=== PATIENT | female | born 1975 | race Caucasian/White ===

== ENCOUNTER 2020-07-26 10:55 | Observation (INO) ==
[2020-07-26] MEDS ORDERED: ONDANSETRON INJ 2 MG/ML 2 ML VIAL IV STA (11:43)
[2020-07-26] MEDS ORDERED: MoRPHine SULFATE 4 MG/ML 1 ML CARP\\VIAL IV STA (11:43)
[2020-07-26 11:57] LABS: Basophils # (auto) 0.05 K/uL (0-0.2); Basophils % (auto) 0.3 %; Eosinophils # (auto) 0.36 K/uL (0-0.5); Eosinophils % (auto) 2.3 %; Hematocrit (blood only) 37.5 % (37-47); Hemoglobin 11.7 g/dL (12.0-16.0); Immature Granulocytes # (auto) 0.21 K/uL (0.00-0.02); Immature Granulocytes % (auto) 1.3 %; Lymphocytes # (auto) 3.56 K/uL (1.2-3.4); Lymphocytes % (auto) 22.8 %; Mean Corpuscular Hemoglobin 24.8 pg (25-34); Mean Corpuscular Hgb Conc 31.2 g/dL (32-36); Mean Corpuscular Volume 79.4 fL (80-100); Mean Platelet Volume 11.7 fL (7.4-10.4); Monocytes # (auto) 1.74 K/uL (0.11-0.59); Monocytes % (auto) 11.1 %; Neutrophils # (auto) 9.72 K/uL (1.4-6.5); Neutrophils % (auto) 62.2 %; Platelet Count 289 K/uL (130-400); RDW Coefficient of Variation 17.7 % (11.5-14.5); RDW Standard Deviation 51.8 fL (36.4-46.3); Red Blood Count 4.72 M/uL (4.2-5.4); White Blood Count 15.64 K/uL (4.8-10.8)
[2020-07-26 12:04] LABS: INR 1.1 (0.9-1.1); Prothrombin Time 11.6 Seconds (9.0-12.0)
[2020-07-26 12:06] LABS: Alanine Aminotransferase 11 U/L (12-78); Albumin Level 2.7 gm/dl (3.4-5.0); Aspartate Aminotransferase 6 U/L (15-37); BUN Creatinine Ratio 20.8 (10-20); Blood Urea Nitrogen 13 mg/dl (7-18); Calcium 8.7 mg/dl (8.5-10.1); Carbon Dioxide 27 mmol/L (21-32); Chloride 102 mmol/L (98-107); Glucose 106 mg/dl (70-99); Lipase 39 U/L (73-393); Potassium 3.4 mmol/L (3.5-5.1); Sodium 138 mmol/L (136-145)
[2020-07-26 12:11] LABS: Albumin Globulin Ratio 0.6 (0.9-2); Alkaline Phosphatase 71 U/L (45-117); Bilirubin,Total 0.4 mg/dl (0.2-1); Creatine Kinase 17 U/L (26-192); Globulin 4.7 gm/dl (2.5-4.0); Total Protein 7.4 gm/dl (6.4-8.2); Troponin I < 0.015 ng/ml (0-0.045)
--- NOTE | 2020-07-26 12:15 | Emergency Department Note ---
History of Present Illness General Chief complaint: Chest Pain Time Seen by Provider: 07/26/20 11:23 History of Present Illness Maximum Pain Intensity: 6 44-year-old female who presents to the emergency department via [facility] ambulance for evaluation of right central chest discomfort since 9:50 AM this morning. The patient reports that she had just taken some ibuprofen for right abdominal pain that has been ongoing for the past month. The patient reports a prior history of kidney stones, and has had blood in her urine with ongoing intermittent discomfort of the abdomen and back. The patient has not been evaluated for her possible kidney stone. The patient admits that she was taking large amounts of aspirin for her pain, and thinks that she overdid it. Patient has not had any coffee-ground emesis or melena. The patient reports that her current chest pain does not radiate into the left chest, neck or shoulder. The patient has had some nausea. She denies diaphoresis. Patient does report significant history of caffeine/coffee use in the past, but has not been drinking coffee over the past several days. She denies alcohol use. Patient denies history of reflux or peptic ulcers. She also denies history of hepatitis, pancreatitis or cholecystitis. Patient denies any abdominal surgical history. Patient also denies any cardiopulmonary history or strong family history of the same. Patient denies any current alleviating or aggravating factors for her chest or abdominal pain. The patient was administered aspirin 324 mg chew and sublingual nitroglycerin x3 without any relief en route. The patient currently rates her discomfort an 8 out of 10. Home Medications Medication Instructions Recorded Confirmed Type ibuprofen 0 mg PO UD PRN 07/26/20 07/26/20 History Allergies Allergy/AdvReac Type Severity Reaction Status Date / Time No Known Allergies Allergy Unverified 07/26/20 13:22 Past Med/Surg History Medical History Acute cholecystitis Kidney stones Morbid obesity Surgical History No significant past surgical history Social History Smoking Status: Never smoker Second Hand Exposure: No; Do You Dip or Chew Tobacco: No; Tobacco Cessation Education Requested by Patient: No Hx Alcohol Use: No Hx Substance Use: No Preferred Language: Pashto 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: No Beliefs That Will Affect Care: None marital status: Single Current Living Situation: Family current occupational status: unemployed Other Information That Helps Us Care for You: No Feels Safe at Home: Yes Safety Concerns: Feels Safe At This Time Assistive Devices: None Review of Systems 10 system review was performed and was negative except for pertinent positives and negatives as indicated in history of present illness Physical Exam Vital Signs Vital Signs - 24 hr 07/26/20 10:55 07/26/20 11:01 07/26/20 11:43 Temperature 36.7 C Temperature Source Oral Pulse Rate 99 H 100 H 99 H Pulse Rate from SpO2 Sensor Pulse Rhythm Regular Regular Respiratory Rate Respiratory Effort / Characteristics Non-Labored Spontaneous Respiratory Depth Normal Respiratory Pattern Regular Blood Pressure 166/94 H 166/94 H Blood Pressure Mean 118 118 Pulse Oximetry 96 96 Oxygen Delivery Method Room Air Room Air Sepsis Recent Fever Within 48 Hours No Sepsis New/Unexplained Change in Mental Status No Sepsis Action Taken by Nursing No Action Required 07/26/20 12:12 07/26/20 13:10 07/26/20 13:30 Temperature Temperature Source Pulse Rate 110 H 104 H 101 H Pulse Rate from SpO2 Sensor 107 H 106 H 100 H Pulse Rhythm Respiratory Rate 17 20 16 Respiratory Effort / Characteristics Respiratory Depth Respiratory Pattern Blood Pressure 121/89 184/103 H 171/103 H Blood Pressure Mean 99 130 125 Pulse Oximetry 95 93 92 Oxygen Delivery Method Sepsis Recent Fever Within 48 Hours Sepsis New/Unexplained Change in Mental Status Sepsis Action Taken by Nursing 07/26/20 14:00 07/26/20 14:30 07/26/20 15:18 Temperature Temperature Source Pulse Rate 100 H 105 H 105 H Pulse Rate from SpO2 Sensor Pulse Rhythm Respiratory Rate 16 35 H 35 H Respiratory Effort / Characteristics Respiratory Depth Respiratory Pattern Blood Pressure 167/106 H 152/90 H 152/90 H Blood Pressure Mean 126 110 Pulse Oximetry 100 Oxygen Delivery Method Room Air Sepsis Recent Fever Within 48 Hours Sepsis New/Unexplained Change in Mental Status Sepsis Action Taken by Nursing CONSTITUTIONAL: Morbidly obese female in moderate discomfort. HEENT: Normocephalic, atraumatic. Pupils equal, round and reactive. No scleral icterus or conjunctival injection/pallor. NECK: Full active range of motion without discomfort. No JVD or carotid bruits appreciated. LYMPHATICS: No cervical chain adenopathy. RESPIRATORY: Clear to auscultation bilaterally with no wheezing, crackles, rhonchi or stridor. Deep breathing does not worsen discomfort. CARDIOVASCULAR: Regular rate and rhythm with no murmurs, rubs or gallops. GASTROINTESTINAL: Bowel sounds present in all quadrants. Patient has generalized epigastric and right upper quadrant tenderness to palpation. Negative McBurney's point tenderness. Negative CVA tenderness. No abdominal rigidity, guarding or rebound. MUSCULOSKELETAL: Full range of motion of all joints without discomfort. INTEGUMENTARY: No rash or other significant dermatologic conditions noted. HEMATOLOGIC: No ecchymosis or petechiae. PSYCHIATRIC: Flat affect. NEUROLOGIC: No focal neurologic deficits noted. Course Course Patient history and physical exam were performed. Nurses notes were reviewed. Vital signs were reviewed, showing an elevated blood pressure of 166/94. Rate is also elevated at 99. The patient is afebrile and not hypoxic. IV access was established, and labs were drawn. The patient was hydrated with a liter normal saline, and administered IV morphine and Zofran for pain. An ECG showed an initial sinus tachycardia of 106 bpm without any other acute findings. The patient was placed on monitor worker while in the emergency department. A portable chest x-ray was normal. Review of labs shows a moderate leukocytosis with left shift and bandemia. Coagulation studies are normal. Potassium is 3.4. Remaining CMP is normal. It is noted that LFTs, bilirubin and alkaline phosphatase are normal. Noncontrast CT of the abdomen and pelvis shows evidence for an acute cholecystitis. Urinalysis suggest a contaminated sample, however u rine culture is pending. Findings were discussed with Dr. Olguin, ED attending physician, who re commended consulting surgery. The case was then further discussed with Dr. Sweet, general surgeon electronics processing supervisor, who will be taking the patient to the OR. COVID-19 test was negative. The patient was administered Mefoxin 2 g IV infusion prior to surgery. The patient did require additional doses of IV analgesics for pain control prior to surgery. Please see Dr. Sweet's dictation for further surgical treatment and final disposition. Administered Medications Lactated Ringer's (Lr) 1,000 mls @ 125 mls/hr IV .Q8H ALIE Stop: 08/25/20 14:44 Last Admin: 07/27/20 04:05 Dose: 125 mls/hr Documented by: [id number] Infusion: 07/27/20 04:05 Dose: 125 mls/hr Documented by: [id number] Admin: 07/26/20 20:25 Dose: Not Given Documented by: [id number] Admin: 07/26/20 20:25 Dose: 125 mls/hr Documented by: [id number] Morphine Sulfate (Morphine Sulfate 2 Mg/Ml Carp) 2 mg IV Q3H PRN PRN Reason: Pain (1,2,3,4,5) & Pre PT Stop: 08/09/20 14:43 Last Admin: 07/26/20 22:58 Dose: 2 mg Documented by: [id number] Oxycodone/Acetaminophen (Oxycodone/Acetaminophen 5mg/325mg Tab) 1 tab PO Q4H PRN PRN Reason: MODERATE Pain (4,5,6) & Pre PT Stop: 08/09/20 14:43 Last Admin: 07/27/20 08:52 Dose: 1 tab Documented by: [id number] Oxycodone/Acetaminophen (Oxycodone/Acetaminophen 5mg/325mg Tab) 2 tab PO Q4H PRN PRN Reason: SEVERE Pain (7,8,9,10) Stop: 08/09/20 14:43 Last Admin: 07/26/20 20:47 Dose: 2 tab Documented by: [id number] Discontinued Medications Bupivacaine HCl/Epinephrine Bitart (Bupivacaine/Epinephrine 0.5% Mpf 1:200,000 30 Ml Vial) Confirm Administered Dose 30 ml .ROUTE .STK-MED ONE Stop: 07/26/20 15:47 Last Admin: 07/26/20 17:05 Dose: 20 ml Documented by: [id number] Fentanyl Citrate (Fentanyl Citrate 100 Mcg/2 Ml Vial) 25 mcg IV Q5M PRN PRN Reason: PACU Use Only-Pain Stop: 07/26/20 23:54 Last Admin: 07/26/20 17:53 Dose: 25 mcg Documented by: [id number] Admin: 07/26/20 17:48 Dose: 25 mcg Documented by: [id number] Admin: 07/26/20 17:43 Dose: 25 mcg Documented by: [id number] Admin: 07/26/20 17:38 Dose: 25 mcg Documented by: [id number] Hydromorphone HCl (Hydromorphone Inj 0.5 Mg/0.5 Ml Syr) 0.5 mg IV NOW STA Stop: 07/26/20 12:48 Last Admin: 07/26/20 13:02 Dose: 0.5 mg Documented by: [id number] Hydromorphone HCl (Hydromorphone Inj 1 Mg/Ml Syringe) 0.25 mg IV Q5M PRN PRN Reason: PACU Use Only-Pain Stop: 07/26/20 23:54 Last Admin: 07/26/20 18:15 Dose: 0.25 mg Documented by: [id number] Admin: 07/26/20 18:09 Dose: 0.25 mg Documented by: [id number] Admin: 07/26/20 18:04 Dose: 0.25 mg Documented by: [id number] Admin: 07/26/20 17:59 Dose: 0.25 mg Documented by: [id number] Sodium Chloride (Nss 1000ml) 1,000 mls @ 999 mls/hr IV .Q1H1M ONE Stop: 07/26/20 13:16 Last Infusion: 07/26/20 14:57 Dose: 0 mls/hr Documented by: [id number] Admin: 07/26/20 13:02 Dose: 999 mls/hr Documented by: [id number] Cefoxitin Sodium (Mefoxin) 2,000 mg in 60 mls @ 100 mls/hr IV NOW STA Stop: 07/26/20 13:22 Last Infusion: 07/26/20 13:47 Dose: 0 mls/hr Documented by: [id number] Admin: 07/26/20 13:06 Dose: 100 mls/hr Documented by: [id number] Ketorolac Tromethamine (Ketorolac 30 Mg/Ml Vial) 30 mg IV NOW ONE Stop: 07/26/20 18:25 Last Admin: 07/26/20 18:32 Dose: 30 mg Documented by: [id number] Labetalol HCl (Labetalol Hcl Iv 5 Mg/Ml 20ml) 5 mg IV Q5M PRN PRN Reason: PACU Use-SBP>160 or DBP>100 Stop: 07/26/20 23:54 Last Admin: 07/26/20 18:29 Dose: 5 mg Documented by: [id number] Cosigned by: [id number] Menthol (Cough Drop (Sugar Free) Rhiannon 24 Rhiannon/1 Box) Confirm Administered Dose 24 rhiannon BUCCAL .STK-MED ONE Stop: 07/27/20 04:42 Last Admin: 07/27/20 05:35 Dose: 24 rhiannon Documented by: [id number] Miscellaneous (Surgicel Absorb Hemostat 2in X 14in) 2 ea TOP ONCE ONE Stop: 07/26/20 17:00 Last Admin: 07/26/20 17:05 Dose: 2 ea Documented by: [id number] Morphine Sulfate (Morphine Sulfate 4 Mg/Ml 1 Ml Carp\Vial) 4 mg IV NOW STA Stop: 07/26/20 11:44 Last Admin: 07/26/20 11:56 Dose: 4 mg Documented by: [id number] Ondansetron HCl (Ondansetron Inj 2 Mg/Ml 2 Ml Vial) 4 mg IV NOW STA Stop: 07/26/20 11:44 Last Admin: 07/26/20 11:56 Dose: 4 mg Documented by: [id number] Medical Decision Making Medical Records Attestation: I reviewed the patient's medical records. Home Medications Current Medication List: was personally reviewed by me Laboratory Data Attestation: I reviewed the patient's lab results. Result diagrams: 07/26/20 11:00 07/26/20 11:00 Lab Results 07/26/20 07/26/20 07/26/20 Range/Units 11:00 11:00 11:00 WBC 15.64 H (4.8-10.8) K/uL RBC 4.72 (4.2-5.4) M/uL Hgb 11.7 L (12.0-16.0) g/dL Hct 37.5 (37-47) % MCV 79.4 L (80-100) fL MCH 24.8 L (25-34) pg MCHC 31.2 L (32-36) g/dL RDW Std Deviation 51.8 H (36.4-46.3) fL RDW Coeff of [place] 17.7 H (11.5-14.5) % Plt Count 289 (130-400) K/uL MPV 11.7 H (7.4-10.4) fL Immature Gran % (Auto) 1.3 % Neut % (Auto) 62.2 % Lymph % (Auto) 22.8 % [place] % (Auto) 11.1 % Eos % (Auto) 2.3 % Baso % (Auto) 0.3 % Neut # (Auto) 9.72 H (1.4-6.5) K/uL Lymph # (Auto) 3.56 H (1.2-3.4) K/uL [place] # (Auto) 1.74 H (0.11-0.59) K/uL Eos # (Auto) 0.36 (0-0.5) K/uL Baso # (Auto) 0.05 (0-0.2) K/uL Immature Gran # (Auto) 0.21 H (0.00-0.02) K/uL PT 11.6 (9.0-12.0) Seconds INR 1.1 (0.9-1.1) APTT 29.0 (21.0-31.0) Seconds PTT Ratio 1.0 Sodium 138 (136-145) mmol/L Potassium 3.4 L (3.5-5.1) mmol/L Chloride 102 (98-107) mmol/L Carbon Dioxide 27 (21-32) mmol/L Anion Gap 8.0 (3-11) BUN 13 (7-18) mg/dl Creatinine 0.64 (0.6-1.2) mg/dl Est Cr Clr Drug Dosing Not Reportable Est GFR ( Amer) 124.0 Est GFR (Non-Af Amer) 107.0 BUN/Creatinine Ratio 20.8 H (10-20) Glucose 106 H (70-99) mg/dl Calcium 8.7 (8.5-10.1) mg/dl Total Bilirubin 0.4 (0.2-1) mg/dl AST 6 L (15-37) U/L ALT 11 L (12-78) U/L Alkaline Phosphatase 71 (45-117) U/L Total Creatine Kinase 17 L (26-192) U/L Troponin I < 0.015 (0-0.045) ng/ml Total Protein 7.4 (6.4-8.2) gm/dl Albumin 2.7 L (3.4-5.0) gm/dl Globulin 4.7 H (2.5-4.0) gm/dl Albumin/Globulin Ratio 0.6 L (0.9-2) Lipase 39 L (73-393) U/L Urine Color Urine Appearance (Clear) Urine pH (4.5-7.5) Ur Specific [place] (1.000-1.030) Urine Protein (Negative) Urine Glucose (UA) (Negative) Urine Ketones (Negative) Urine Blood (Negative) Urine Nitrite (Negative) Urine Bilirubin (Negative) Urine Urobilinogen (Negative) Ur Leukocyte Esterase (Negative) Urine WBC (Auto) (0-5) /hpf Urine RBC (Auto) (0-4) /hpf U Hyaline Cast (Auto) (0-5) /lpf U Epithel Cells (Auto) (0-5) /lpf Urine Bacteria (Auto) (Negative) Ur Renal Epithelial Cell Urine Test (Negative) Urine Opiates Screen (Neg) Ur Methadone, Qual (Neg) Urine Barbiturates (Neg) Ur Phencyclidine (PCP) (Neg) U Amphetamin/Meth Scrn (Neg) MDMA (Ecstasy) Screen (Neg) U Benzodiazepines Scrn (Neg) Ur Cocaine Metabolite (Neg) U Marijuana (THC) Screen (Neg) COVID-19 Eval Order SARS-CoV-2, RNA, NAAT (NEGATIVE) 07/26/20 07/26/20 07/26/20 Range/Units 13:10 13:10 15:15 WBC (4.8-10.8) K/uL RBC (4.2-5.4) M/uL Hgb (12.0-16.0) g/dL Hct (37-47) % MCV (80-100) fL MCH (25-34) pg MCHC (32-36) g/dL RDW Std Deviation (36.4-46.3) fL RDW Coeff of [place] (11.5-14.5) % Plt Count (130-400) K/uL MPV (7.4-10.4) fL Immature Gran % (Auto) % Neut % (Auto) % Lymph % (Auto) % [place] % (Auto) % Eos % (Auto) % Baso % (Auto) % Neut # (Auto) (1.4-6.5) K/uL Lymph # (Auto) (1.2-3.4) K/uL [place] # (Auto) (0.11-0.59) K/uL Eos # (Auto) (0-0.5) K/uL Baso # (Auto) (0-0.2) K/uL Immature Gran # (Auto) (0.00-0.02) K/uL PT (9.0-12.0) Seconds INR (0.9-1.1) APTT (21.0-31.0) Seconds PTT Ratio Sodium (136-145) mmol/L Potassium (3.5-5.1) mmol/L Chloride (98-107) mmol/L Carbon Dioxide (21-32) mmol/L Anion Gap (3-11) BUN (7-18) mg/dl Creatinine (0.6-1.2) mg/dl Est Cr Clr Drug Dosing Est GFR ( Amer) Est GFR (Non-Af Amer) BUN/Creatinine Ratio (10-20) Glucose (70-99) mg/dl Calcium (8.5-10.1) mg/dl Total Bilirubin (0.2-1) mg/dl AST (15-37) U/L ALT (12-78) U/L Alkaline Phosphatase (45-117) U/L Total Creatine Kinase (26-192) U/L Troponin I (0-0.045) ng/ml Total Protein (6.4-8.2) gm/dl Albumin (3.4-5.0) gm/dl Globulin (2.5-4.0) gm/dl Albumin/Globulin Ratio (0.9-2) Lipase (73-393) U/L Urine Color Dark Yellow Urine Appearance Clear (Clear) Urine pH 5.5 (4.5-7.5) Ur Specific [place] 1.036 H (1.000-1.030) Urine Protein 2+ H (Negative) Urine Glucose (UA) Negative (Negative) Urine Ketones 3+ H (Negative) Urine Blood 3+ H (Negative) Urine Nitrite Negative (Negative) Urine Bilirubin 1+ H (Negative) Urine Urobilinogen Negative (Negative) Ur Leukocyte Esterase Trace H (Negative) Urine WBC (Auto) >30 H (0-5) /hpf Urine RBC (Auto) >30 H (0-4) /hpf U Hyaline Cast (Auto) 0 (0-5) /lpf U Epithel Cells (Auto) >30 H (0-5) /lpf Urine Bacteria (Auto) Negative (Negative) Ur Renal Epithelial Cell Not Reportable Urine Test (Negative) Urine Opiates Screen (Neg) Ur Methadone, Qual (Neg) Urine Barbiturates (Neg) Ur Phencyclidine (PCP) (Neg) U Amphetamin/Meth Scrn (Neg) MDMA (Ecstasy) Screen (Neg) U Benzodiazepines Scrn (Neg) Ur Cocaine Metabolite (Neg) U Marijuana (THC) Screen (Neg) COVID-19 Eval Order Covid19 [facility] SARS-CoV-2, RNA, NAAT NEGATIVE (NEGATIVE) 07/26/20 07/26/20 Range/Units 15:15 15:15 WBC (4.8-10.8) K/uL RBC (4.2-5.4) M/uL Hgb (12.0-16.0) g/dL Hct (37-47) % MCV (80-100) fL MCH (25-34) pg MCHC (32-36) g/dL RDW Std Deviation (36.4-46.3) fL RDW Coeff of [place] (11.5-14.5) % Plt Count (130-400) K/uL MPV (7.4-10.4) fL Immature Gran % (Auto) % Neut % (Auto) % Lymph % (Auto) % [place] % (Auto) % Eos % (Auto) % Baso % (Auto) % Neut # (Auto) (1.4-6.5) K/uL Lymph # (Auto) (1.2-3.4) K/uL [place] # (Auto) (0.11-0.59) K/uL Eos # (Auto) (0-0.5) K/uL Baso # (Auto) (0-0.2) K/uL Immature Gran # (Auto) (0.00-0.02) K/uL PT (9.0-12.0) Seconds INR (0.9-1.1) APTT (21.0-31.0) Seconds PTT Ratio Sodium (136-145) mmol/L Potassium (3.5-5.1) mmol/L Chloride (98-107) mmol/L Carbon Dioxide (21-32) mmol/L Anion Gap (3-11) BUN (7-18) mg/dl Creatinine (0.6-1.2) mg/dl Est Cr Clr Drug Dosing Est GFR ( Amer) Est GFR (Non-Af Amer) BUN/Creatinine Ratio (10-20) Glucose (70-99) mg/dl Calcium (8.5-10.1) mg/dl Total Bilirubin (0.2-1) mg/dl AST (15-37) U/L ALT (12-78) U/L Alkaline Phosphatase (45-117) U/L Total Creatine Kinase (26-192) U/L Troponin I (0-0.045) ng/ml Total Protein (6.4-8.2) gm/dl Albumin (3.4-5.0) gm/dl Globulin (2.5-4.0) gm/dl Albumin/Globulin Ratio (0.9-2) Lipase (73-393) U/L Urine Color Urine Appearance (Clear) Urine pH (4.5-7.5) Ur Specific [place] (1.000-1.030) Urine Protein (Negative) Urine Glucose (UA) (Negative) Urine Ketones (Negative) Urine Blood (Negative) Urine Nitrite (Negative) Urine Bilirubin (Negative) Urine Urobilinogen (Negative) Ur Leukocyte Esterase (Negative) Urine WBC (Auto) (0-5) /hpf Urine RBC (Auto) (0-4) /hpf U Hyaline Cast (Auto) (0-5) /lpf U Epithel Cells (Auto) (0-5) /lpf Urine Bacteria (Auto) (Negative) Ur Renal Epithelial Cell Urine Test Negative (Negative) Urine Opiates Screen Pos H (Neg) Ur Methadone, Qual Neg (Neg) Urine Barbiturates Neg (Neg) Ur Phencyclidine (PCP) Neg (Neg) U Amphetamin/Meth Scrn Neg (Neg) MDMA (Ecstasy) Screen Neg (Neg) U Benzodiazepines Scrn Neg (Neg) Ur Cocaine Metabolite Neg (Neg) U Marijuana (THC) Screen Neg (Neg) COVID-19 Eval Order SARS-CoV-2, RNA, NAAT (NEGATIVE) Imaging Data Attestation: I personally reviewed and interpreted this imaging study as follows: My Impression: My interpretation of a portable chest x-ray does not show any consolidations, pneumothorax or cardiac prominence. My interpretation of a noncontrast CT of the abdomen and pelvis shows evidence for acute cholecystitis. There is no evidence for appendicitis, diverticulitis, bowel obstruction or free air. There is a 17 cm mass arising from the uterine fundus will need further gynecological work-up. Radiologist reports were reviewed. Radiologist's Impression: SINGLE VIEW CHEST CLINICAL HISTORY: Atypical chest pain. FINDINGS: An AP, portable, upright chest radiograph is obtained. No prior studies are available for comparison at the time of dictation. The examination is degraded by portable technique, large body habitus, and apical lordotic positioning. The heart is top normal for projection. There is mild bibasilar atelectasis. The lungs and pleural spaces are otherwise clear. No pneumothorax is seen. The bony thorax is grossly intact. IMPRESSION: No active disease in the chest. CT SCAN OF THE ABDOMEN AND PELVIS WITHOUT IV CONTRAST CLINICAL HISTORY: Generalized abdominal pain. Hematuria. COMPARISON STUDY: No priors. TECHNIQUE: CT scan of the abdomen and pelvis is performed from the lung bases to the proximal femora. Images are reviewed in the axial, sagittal, and coronal planes. IV contrast was not administered for this examination. A dose lowering technique was utilized adhering to the principles of ALARA. The examination is degraded by large body habitus, and by streak artifact from the body wall abutting the CT gantry. CT DOSE: 2402.98 mGy.cm FINDINGS: Lung bases: The heart is normal in size and without pericardial effusion. The lung bases are clear. There is a small hiatal hernia. Liver: The unenhanced liver is normal in size, contour, and attenuation. There is no intrahepatic biliary ductal dilatation. Gallbladder: The gallbladder is distended. The gallbladder wall is thickened and there is pericholecystic inflammation and trace fluid. Findings are consistent with acute cholecystitis. Spleen: Normal in size and attenuation. Pancreas: Unremarkable. Adrenal glands: Unremarkable. Kidneys: The unenhanced kidneys are normal in size and without hydronephrosis. There are at least 3 nonobstructing left renal calculi which measure up to 4 mm. No right renal calculi are identified. There is no evidence of contour deforming renal mass lesion. Abdominal vasculature: The abdominal aorta is normal in course and caliber. Bowel: There is mild colonic diverticulosis without CT evidence of acute diverticulitis. No bowel obstruction is seen. The appendix is well-visualized and normal. Peritoneum: There is no intraperitoneal free air or abdominal ascites. Lymphadenopathy: Shotty retroperitoneal lymph nodes are not pathologically enlarged by size criteria. Pelvic viscera: The bladder is decompressed and grossly unremarkable. There is an approximately 17 x 15.5 x 16 cm heterogeneous centrally low-attenuation mass lesion arising from or located within the uterine fundus. The ovaries are normal as visualized. Skeletal structures: No lytic or blastic lesions are seen. Sclerotic change is noted involving the sacroiliac joints. There is mild lumbosacral spondylosis and scoliosis. IMPRESSION: 1. Findings are consistent with acute cholecystitis. Surgical consultation is advised. 2. There is an approximately 17 cm mass arising from or within the uterine fundus. This is pathologically indeterminant and may represent a large fibroid. Neoplasm is not excluded. Gynecological surgical follow-up is recommended. 3. Mild colonic diverticulosis without CT evidence of acute diverticulitis. 4. Left-sided nephrolithiasis. 5. Additional findings as above. ECG Data Attestation: I personally reviewed and interpreted this ECG as follows: Indication: + chest pain Rate (beats per minute): 106 Rhythm: + sinus tachycardia ECG Intervals/blocks: + Normal QRS, + Normal QT and + Normal NC ECG [place]: + Normal ECG ST segments: + Normal ST segments Comparison ECG Date: no prior available Blood Pressure Blood Pressure Findings: Elevated blood pressure MDM Narrative Patient presents to the emergency department with complaint of sternal chest pain and right upper quadrant abdominal pain that has been ongoing for the past month. The patient initially thought that her pain was secondary to a passing kidney stone as she has had hematuria. It is noted that the patient was administered nitroglycerin and aspirin en route to the hospital without any relief of pain. Her ECG and troponin were normal. D-dimer was also normal, therefore I do feel that the patient is at low risk for major cardiac event and pulmonary embolus. CT is definitive with evidence of acute cholecystitis, likely the cause of the patient's discomfort. Impression & Plan Acute cholecystitis, Uterine mass, Personal history of kidney stones Discharge Plan Visit Data Chief Complaint: Chest Pain ED Provider: Fortino Olguin ED Midlevel Provider: Reynold Gambino Discharge Problem: Acute cholecystitis, Uterine mass, Personal history of kidney stones Patient Disposition: Admitted As Inpatient Discharge Instructions Interventions: ED Discharge Assessment Last Done: 07/26/20 15:18
[2020-07-26] MEDS ORDERED: SODIUM CHLORIDE 0.9% 1000ML 1,000 ML IV ONE (12:16)
--- NOTE | 2020-07-26 12:30 | CT Scan Report ---
CT SCAN OF THE ABDOMEN AND PELVIS WITHOUT IV CONTRAST CLINICAL HISTORY: Generalized abdominal pain. Hematuria. COMPARISON STUDY: No priors. TECHNIQUE: CT scan of the abdomen and pelvis is performed from the lung bases to the proximal femora. Images are reviewed in the axial, sagittal, and coronal planes. IV contrast was not administered for this examination. A dose lowering technique was utilized adhering to the principles of ALARA. The ex amination is degraded by large body habitus, and by streak artifact from the body wall abutting the C T gantry. CT DOSE: 2402.98 mGy.cm FINDINGS: Lung bases: The heart is normal in size and without pericardial effusion. The lung bases are clear. T here is a small hiatal hernia. Liver: The unenhanced liver is normal in size, contour, and attenuation. There is no intrahepatic meron iary ductal dilatation. Gallbladder: The gallbladder is distended. The gallbladder wall is thickened and there is pericholecy stic inflammation and trace fluid. Findings are consistent with acute cholecystitis. Spleen: Normal in size and attenuation. Pancreas: Unremarkable. Adrenal glands: Unremarkable. Kidneys: The unenhanced kidneys are normal in size and without hydronephrosis. There are at least 3 n onobstructing left renal calculi which measure up to 4 mm. No right renal calculi are identified. The re is no evidence of contour deforming renal mass lesion. Abdominal vasculature: The abdominal aorta is normal in course and caliber. Bowel: There is mild colonic diverticulosis without CT evidence of acute diverticulitis. No bowel obs truction is seen. The appendix is well-visualized and normal. Peritoneum: There is no intraperitoneal free air or abdominal ascites. Lymphadenopathy: Shotty retroperitoneal lymph nodes are not pathologically enlarged by size criteria. Pelvic viscera: The bladder is decompressed and grossly unremarkable. There is an approximately 17 x 15.5 x 16 cm heterogeneous centrally low-attenuation mass lesion arising from or located within the u terine fundus. The ovaries are normal as visualized. Skeletal structures: No lytic or blastic lesions are seen. Sclerotic change is noted involving the sa croiliac joints. There is mild lumbosacral spondylosis and scoliosis. IMPRESSION: 1. Findings are consistent with acute cholecystitis. Surgical consultation is advised. 2. There is an approximately 17 cm mass arising from or within the uterine fundus. This is pathologic ally indeterminant and may represent a large fibroid. Neoplasm is not excluded. Gynecological surgica l follow-up is recommended. 3. Mild colonic diverticulosis without CT evidence of acute diverticulitis. 4. Left-sided nephrolithiasis. 5. Additional findings as above. ACT 112: Positive. There are findings on this exam that require communication between the performing entity and the patient following Patient Test Result Information Act ([place] Act 112) guidelines. Electronically signed by: Dorian Huston M.D. 07/26/2020 12:29 PM
[2020-07-26] MEDS ORDERED: cefOXitin 2,000 MG/60 ML BAG IV STA (12:47)
[2020-07-26] MEDS ORDERED: HYDROmorphone INJ 0.5 MG/0.5 ML SYR IV STA (12:47)
--- NOTE | 2020-07-26 12:56 | XRay Report ---
SINGLE VIEW CHEST CLINICAL HISTORY: Atypical chest pain. FINDINGS: An AP, portable, upright chest radiograph is obtained. No prior studies are available for c omparison at the time of dictation. The examination is degraded by portable technique, large body hab itus, and apical lordotic positioning. The heart is top normal for projection. There is mild bibasila r atelectasis. The lungs and pleural spaces are otherwise clear. No pneumothorax is seen. The bony th orax is grossly intact. IMPRESSION: No active disease in the chest. ACT 112: Negative or not required by law. Electronically signed by: Dorian Huston M.D. 07/26/2020 12:55 PM
--- NOTE | 2020-07-26 14:39 | History & Physical Report ---
Date of Service July 26, 2020 Assessment & Plan (1) Acute cholecystitis: IVF IV abx to OR for lap hernán Present on Admission?: Yes History of Present Illness Primary Care Provider: NO PCP This is a 44-year-old female who presents right sided abdominal pain since this morning. The patient reports a prior history of kidney stones, and has had bl ood in her urine with ongoing intermittent discomfort of the abdomen and back. The patient has had some nausea. She denies diaphoresis. She has no abdominal surgical history. Patient also denies any cardiopulmonary history or strong family history of the same. Allergies Allergy/AdvReac Type Severity Reaction Status Date / Time No Known Allergies Allergy Unverified 07/26/20 13:22 Home Medications Medication Instructions Recorded Confirmed Type ibuprofen 0 mg PO UD PRN 07/26/20 07/26/20 History Past Med/Surg History Medical History Kidney stones Surgical History No significant past surgical history Social History Smoking Status: Never smoker Preferred Language: Cypriot marital status: Single current occupational status: unemployed Feels Safe at Home: Yes Review of Systems + anorexia; no fever, no chills and no fatigue no cough and no dyspnea + chest pain and + chest pain at rest; no chest pain with activity + abdominal pain and + nausea; no vomiting, no coffee ground emesis and no change in bowel habits no dysuria + back pain no rash and no yellowing of the skin no localized weakness and no generalized weakness no depression no fatigue Physical Exam Constitutional: well developed, well nourished and + obese Neck: trachea midline Respiratory: normal respiratory effort, lungs clear to auscultation Auscultation: + diminished lung sounds Cardiovascular: RRR, no murmur, no edema Gastrointestinal (Abdomen): Inspection/Auscultation: abdomen normal to inspection and normal bowel sounds; abdomen not distended Percussion/Palpation: + abdomen tender and abdomen soft; no guarding and abdomen not rigid ASA Classification ASA ASA2E Results & Data ([facility]) Vital Signs (Past 12 Hours) Vital Signs Temp Pulse Resp BP Pulse Ox 07/26/20 14:30 105 H 35 H 152/90 H 07/26/20 14:00 100 H 16 167/106 H 07/26/20 13:30 101 H 16 171/103 H 92 07/26/20 13:10 104 H 20 184/103 H 93 07/26/20 12:12 110 H 17 121/89 95 07/26/20 11:43 99 H 21 96 07/26/20 11:01 100 H 21 166/94 H 07/26/20 10:55 36.7 C 99 H 21 166/[address] SCAN OF THE ABDOMEN AND PELVIS WITHOUT IV CONTRAST CLINICAL HISTORY: Generalized abdominal pain. Hematuria. COMPARISON STUDY: No priors. TECHNIQUE: CT scan of the abdomen and pelvis is performed from the lung bases to the proximal femora. Images are reviewed in the axial, sagittal, and coronal planes. IV contrast was not administered for this examination. A dose lowering technique was utilized adhering to the principles of ALARA. The examination is degraded by large body habitus, and by streak artifact from the body wall abutting the CT gantry. CT DOSE: 2402.98 mGy.cm FINDINGS: Lung bases: The heart is normal in size and without pericardial effusion. The lung bases are clear. There is a small hiatal hernia. Liver: The unenhanced liver is normal in size, contour, and attenuation. There is no intrahepatic biliary ductal dilatation. Gallbladder: The gallbladder is distended. The gallbladder wall is thickened and there is pericholecystic inflammation and trace fluid. Findings are consistent with acute cholecystitis. Spleen: Normal in size and attenuation. Pancreas: Unremarkable. Adrenal glands: Unremarkable. Kidneys: The unenhanced kidneys are normal in size and without hydronephrosis. There are at least 3 nonobstructing left renal calculi which measure up to 4 mm. No right renal calculi are identified. There is no evidence of contour deforming renal mass lesion. Abdominal vasculature: The abdominal aorta is normal in course and caliber. Bowel: There is mild colonic diverticulosis without CT evidence of acute diverticulitis. No bowel obstruction is seen. The appendix is well-visualized and normal. Peritoneum: There is no intraperitoneal free air or abdominal ascites. Lymphadenopathy: Shotty retroperitoneal lymph nodes are not pathologically enlarged by size criteria. Pelvic viscera: The bladder is decompressed and grossly unremarkable. There is an approximately 17 x 15.5 x 16 cm heterogeneous centrally low-attenuation mass lesion arising from or located within the uterine fundus. The ovaries are normal as visualized. Skeletal structures: No lytic or blastic lesions are seen. Sclerotic change is noted involving the sacroiliac joints. There is mild lumbosacral spondylosis and scoliosis. IMPRESSION: 1. Findings are consistent with acute cholecystitis. Surgical consultation is advised. 2. There is an approximately 17 cm mass arising from or within the uterine fundus. This is pathologically indeterminant and may represent a large fibroid. Neoplasm is not excluded. Gynecological surgical follow-up is recommended. 3. Mild colonic diverticulosis without CT evidence of acute diverticulitis. 4. Left-sided nephrolithiasis. 5. Additional findings as above. Code Status & VTE Plan Code Status Full Code VTE Prophylaxis Plan VTE Prophylaxis will be ordered: Yes
[2020-07-26] MEDS ORDERED: PROMETHAZINE HCL 12.5 MG in SODIUM CHLORIDE 0.9% 50 ML IV PRN (14:44)
[2020-07-26] MEDS ORDERED: MoRPHine SULFATE 2 MG/ML CARP IV PRN (14:44)
[2020-07-26] MEDS ORDERED: ONDANSETRON INJ 2 MG/ML 2 ML VIAL IV PRN ×2 (14:44→15:54)
[2020-07-26] MEDS ORDERED: oxyCODONE/ACETAMINOPHEN 5mg/325mg TAB PO PRN (14:44)
--- NOTE | 2020-07-26 15:00 | Anesthesiology Consultation ---
Date of Service July 26, 2020 Assessment & Plan (1) Encounter for pre-operative examination: History Surgery Operation Date: 07/26/20 15:00 Proposed Procedures p Laparoscopic Cholecystectomy - Tray Sweet MD Height/Weight Height: 5 ft 1 in Weight: 161.3 kg Allergies Allergy/AdvReac Type Severity Reaction Status Date / Time No Known Allergies Allergy Unverified 07/26/20 13:22 Medications Home Medications Medication Instructions Recorded Confirmed Last Taken ibuprofen 0 mg PO UD PRN 07/26/20 07/26/20 07/26/20 09:30 NPO Date Last Intake of Fluids: 07/26/20 Time Last Intake of Fluids: 09:30 Date Last Intake of Solids: 07/25/20 Time Last Intake of Solids: 14:00 Past Medical History Medical History Acute cholecystitis Kidney stones Past Surgical History Surgical History No significant past surgical history Social History Smoking Status: Never smoker Physical Exam Vital Signs Last Vital Signs Temp 36.7 C 07/26/20 10:55 Pulse 105 H 07/26/20 14:30 Resp 35 H 07/26/20 14:30 BP 152/90 H 07/26/20 14:30 Pulse Ox 92 07/26/20 13:30 Testing Laboratory Results 07/26/20 11:00 07/26/20 11:00 PT 11.6 Seconds (9.0-12.0) 07/26/20 11:00 INR 1.1 (0.9-1.1) 07/26/20 11:00 APTT 29.0 Seconds (21.0-31.0) 07/26/20 11:00 Chest X-Ray Date: 07/25/20 Findings: + NAD
[2020-07-26 15:28] LABS: Pregnancy Test, Urine Negative (Negative)
[2020-07-26 15:33] LABS: Appearance Urine Clear (Clear); Bacteria Urine Automated Negative (Negative); Blood Urine 3+ (Negative); Color Urine Dark Yellow; Epithelial Cell Urine Auto >30 /lpf (0-5); Glucose Urine UA Negative (Negative); Ketones Urine 3+ (Negative); Leukocyte Esterase Urine Trace (Negative); Nitrite Urine Negative (Negative); Protein Urine 2+ (Negative); RBC Urine Automated >30 /hpf (0-4); Specific Gravity Urine 1.036 (1.000-1.030); Urobilinogen Urine Negative (Negative); WBC Urine Automated >30 /hpf (0-5); pH Urine 5.5 (4.5-7.5)
[2020-07-26 15:36] LABS: Bilirubin Urine 1+ (Negative)
[2020-07-26] MEDS ORDERED: PROPOFOL IV EMULSION 10 MG/ML 20 ML VIAL IV ONE (15:42)
[2020-07-26] MEDS ORDERED: ROCURONIUM BROMIDE 10 MG/ML 5 ML VIAL IV ONE (15:42)
[2020-07-26] MEDS ORDERED: ONDANSETRON INJ 2 MG/ML 2 ML VIAL ONE (15:42)
[2020-07-26] MEDS ORDERED: fentaNYL citrate 100 MCG/2 ML VIAL ONE ×2 (15:42→16:43)
[2020-07-26] MEDS ORDERED: LIDOCAINE HCL 2% 2 ML VIAL/AMP(20MG/ML) INFIL ONE (15:42)
[2020-07-26] MEDS ORDERED: MIDAZOLAM HCL 1 MG/ML 2ML VIAL ONE (15:42)
[2020-07-26] MEDS ORDERED: BUPIVACAINE/EPINEPHRINE 0.5% MPF 1:200,000 30 ML VIAL ONE (15:46)
[2020-07-26 15:48] LABS: Cast Urine Automated 0 /lpf (0-5)
--- NOTE | 2020-07-26 15:49 | Anesthesiology Consultation ---
Date of Service July 26, 2020 Covid 19 negative today. Assessment & Plan (1) Encounter for pre-operative examination: Chart Review Chart Review: Acceptable Risk for Surgery and Patient NOT seen in Pre Admission Testing Consults Requested none History Surgery Operation Date: 07/26/20 15:00 Proposed Procedures p Laparoscopic Cholecystectomy - Tray Sweet MD Height/Weight Height: 5 ft 1 in Weight: 161.3 kg Allergies Allergy/AdvReac Type Severity Reaction Status Date / Time No Known Allergies Allergy Unverified 07/26/20 13:22 Medications Home Medications Medication Instructions Recorded Confirmed Last Taken ibuprofen 0 mg PO UD PRN 07/26/20 07/26/20 07/26/20 09:30 NPO Date Last Intake of Fluids: 07/25/20 Time Last Intake of Fluids: 16:00 Date Last Intake of Solids: 07/25/20 Time Last Intake of Solids: 16:00 Past Medical History Medical History Acute cholecystitis Kidney stones Morbid obesity Past Surgical History Surgical History No significant past surgical history Social History Smoking Status: Never smoker Physical Exam Vital Signs Last Vital Signs Temp 36.7 C 07/26/20 10:55 Pulse 105 H 07/26/20 15:18 Resp 35 H 07/26/20 15:18 BP 152/90 H 07/26/20 15:18 Pulse Ox 100 07/26/20 15:18 Testing Laboratory Results 07/26/20 11:00 07/26/20 11:00 PT 11.6 Seconds (9.0-12.0) 07/26/20 11:00 INR 1.1 (0.9-1.1) 07/26/20 11:00 APTT 29.0 Seconds (21.0-31.0) 07/26/20 11:00 Urine Color Dark Yellow 07/26/20 15:15 Urine Appearance Clear (Clear) 07/26/20 15:15 Urine pH 5.5 (4.5-7.5) 07/26/20 15:15 Ur Specific [place] 1.036 (1.000-1.030) H 07/26/20 15:15 Urine Protein 2+ (Negative) H 07/26/20 15:15 Urine Glucose (UA) Negative (Negative) 07/26/20 15:15 Urine Ketones 3+ (Negative) H 07/26/20 15:15 Urine Nitrite Negative (Negative) 07/26/20 15:15 Ur Leukocyte Esterase Trace (Negative) H 07/26/20 15:15 Urine WBC (Auto) >30 /hpf (0-5) H 07/26/20 15:15 Urine RBC (Auto) >30 /hpf (0-4) H 07/26/20 15:15 U Hyaline Cast (Auto) 0 /lpf (0-5) 07/26/20 15:15 U Epithel Cells (Auto) >30 /lpf (0-5) H 07/26/20 15:15 Urine Bacteria (Auto) Negative (Negative) 07/26/20 15:15 Urine Test Negative (Negative) 07/26/20 15:15 07/26/20 15:15 Urine Test Negative Electrocardiogram Date: 07/26/20 Findings: + ST @ (106) borderline L atrial enlargement Chest X-Ray Date: 07/25/20 Findings: + NAD
[2020-07-26] MEDS ORDERED: MEPERIDINE HCL 25 MG/ML CARP/VIAL IV PRN (15:54)
[2020-07-26] MEDS ORDERED: PHENYLEPHRINE 100MCG/ML 5ML SYR IV PRN (15:54)
[2020-07-26] MEDS ORDERED: ATROPINE SULFATE 0.1 MG/ML 10ML SYR IV PRN (15:54)
[2020-07-26] MEDS ORDERED: ePHEDrine sulfate 50 MG/ML AMP IV PRN (15:54)
[2020-07-26] MEDS ORDERED: LABETALOL HCL IV 5 MG/ML 20ML IV PRN (15:54)
[2020-07-26 15:56] LABS: Amphetamines+Metham, Urine Neg (Neg); Barbiturates, Urine Neg (Neg); Benzodiazepine, Urine Neg (Neg); Cocaine, Urine Neg (Neg); MDMA (Ecstacy), Urine Neg (Neg); Methadone, Urine Neg (Neg); Opiate, Urine Pos (Neg); Phencyclidine, Urine Neg (Neg)
[2020-07-26] MEDS ORDERED: SURGICEL ABSORB HEMOSTAT 2IN X 14IN TOP ONE (16:59)
[2020-07-26] MEDS ORDERED: SUGAMMADEX SODIUM 200 MG/2 ML VIAL IV ONE (17:12)
--- NOTE | 2020-07-26 17:12 | Post Operative Brief Note ---
Immediate Post Op Note v1 Date of Surgery July 26, 2020 Pre & Post Diagnosis Operation Date: 07/26/20 15:00 Pre-Op Diagnosis: Acute Cholecystitis Post-Op Diagnosis: Acute Cholecystitis I identified the patient and participated in the time-out.: Yes Procedure Operation Date: 07/26/20 15:00 Actual Procedures p Laparoscopic Cholecystectomy - Tray Sweet MD Surgeon Tray Sweet MD Public Improvement Inspector none Estimated Blood Loss 40 Findings Consistent with Post-Op Diagnosis
[2020-07-26] MEDS ORDERED: GLYCOPYRROLATE 0.2 MG/ML VIAL ONE (17:37)
[2020-07-26] MEDS ORDERED: LABETALOL HCL IV 5 MG/ML 20ML IV ONE (17:37)
[2020-07-26] MEDS ORDERED: NEOSTIGMINE METHYLSULFATE 5 MG/5 ML SYR ONE (17:37)
[2020-07-26] MEDS: fentaNYL citrate 100 MCG/2 ML VIAL IV PRN ×4 (17:38→17:53)
[2020-07-26] MEDS: HYDROmorphone INJ 1 MG/ML SYRINGE IV PRN ×4 (17:59→18:15)
[2020-07-26] MEDS ORDERED: KETOROLAC 30 MG/ML VIAL IV ONE (18:24)
--- NOTE | 2020-07-26 18:25 | Anesthesiology Progress Note ---
Date of Service July 26, 2020 Anesthesia Post Procedure Vital Signs Vital Signs: Temp Pulse Pulse Resp BP BP Pulse Ox 07/26/20 18:10 86 15 158/96 H 94 07/26/20 18:00 78 16 147/84 H 97 07/26/20 17:50 80 17 156/89 H 95 07/26/20 17:40 78 15 152/90 H 94 07/26/20 17:30 78 14 162/103 H 98 07/26/20 17:23 36.4 C L 79 21 140/86 92 07/26/20 15:18 105 H 35 H 152/90 H 100 07/26/20 14:30 105 H 35 H 152/90 H 07/26/20 14:00 100 H 16 167/106 H 07/26/20 13:30 101 H 16 171/103 H 92 07/26/20 13:10 104 H 20 184/103 H 93 07/26/20 12:12 110 H 17 121/89 95 07/26/20 11:43 99 H 21 96 07/26/20 11:01 100 H 21 166/94 H 07/26/20 10:55 36.7 C 99 H 21 166/94 H 96 Pain Intensity Abdomen: Pain Intensity: 3 Transfer of Care Handoff Completed per policy Notes Mental Status: alert / awake / arousable Patient Amnestic to Procedure: Yes Nausea / Vomiting: adequately controlled Pain: adequately controlled Airway Patency, RR, SpO2: stable & adequate BP & HR: stable & adequate Hydration State: stable & adequate Anesthetic Complications: no major complications apparent and Pt Satisfied with anesthetic care
[2020-07-26] MEDS: LACTATED RINGER'S 1,000 ML IV SCH ×2 (20:25)
--- NOTE | 2020-07-27 01:34 | Operative Report (OR) ---
DATE OF OPERATION: 07/26/2020 PREOPERATIVE DIAGNOSIS: Acute cholecystitis. POSTOPERATIVE DIAGNOSIS: Acute cholecystitis. PROCEDURE PERFORMED: Laparoscopic cholecystectomy. SURGEON: Tray Sweet MD TELEGRAPH SERVICE RATER: None. ANESTHESIA: General endotracheal with 0.5% Marcaine with epinephrine local. ESTIMATED BLOOD LOSS: 40 mL. DRAINS: None. COMPLICATIONS: None. SPECIMENS: Gallbladder sent for pathologic evaluation. INDICATION FOR PROCEDURE: This is a 44-year-old morbidly obese white female who presented to the ED this afternoon with acute chest and abdominal pain, underwent a workup with CT scan showing acute cholecystitis. She also had a large 17 cm uterine mass which was noted on CT and also palpated on exam. Her gallbladder appeared tense by exam also. She has an elevated white count. We have recommended a laparoscopic cholecystectomy. She received IV fluids, IV antibiotics and will be taken to the OR for laparoscopic cholecystectomy. She understands all the risks and wished to proceed. DESCRIPTION OF PROCEDURE: The patient was taken to the OR and underwent excellent general endotracheal anesthesia. Abdomen was prepped and draped in normal sterile fashion. A transverse supraumbilical incision was made. Dissection was taken down to identify anterior fascia. Two Vicryls were placed in either side of midline. The midline was incised sharply, peritoneal cavity was entered bluntly. Attention had to be placed to divert this towards cephalad with a large uterine mass which was obviously palpable. Once Anyi trocar was then inserted, good pneumoperitoneum was achieved to 15 mmHg pressure. An 11 subxiphoid, two 5 lateral ports were placed in normal fashion. Her gallbladder was obviously inflamed and it was tense. An aspirator was used to aspirate this. There were large stones within it also that could be palpated with a grasper. Once the aspiration was done, two 5 lateral ports were also placed. A grasper was used to grasp the fundus and retracted superiorly. The neck was grasped and retracted laterally. Peritoneal attachments were taken down with some difficulty secondary to the edema in the arroyo, but the cystic artery and cystic duct were identified and skeletonized. There were some veins, which were also seen. A medial and lateral window was created between the gallbladder and gallbladder fossa showing these structures going to the gallbladder. Once this critical view was seen, 3 clips were placed distally on the cystic duct, 1 proximally and the cystic duct was transected. Two clips were then placed proximally in the cystic artery, 1 distally on the cystic artery and the cystic artery was transected. The veins were also clipped and transected. Electrocautery hook was then used to remove the gallbladder from the gallbladder fossa. This was somewhat difficult as it was the intrahepatic gallbladder, but this was removed without making a defect in the gallbladder. There was no spillage of stones. Once the gallbladder was completely removed, it was put into an Endobag and brought out through the supraumbilical incision. This was then sent for pathologic evaluation. Pneumoperitoneum was reestablished and a suction drive tester was used to irrigate out the gallbladder fossa. There were some areas which were raw and some venous bleeding. These were cauterized and then packed with Surgicel. Abdomen was then irrigated out and suctioned to clear. There was no active bleeding at the end of the surgery. There was about 40 mL of blood loss. Once this was done, the ports were removed and pneumoperitoneum was decompressed. 0 Vicryl was used to close the fascial defects, 0.5% Marcaine with epinephrine local was used to create a local field block. Interrupted stormy were used to close the skin. Sterile dressings were applied. The patient tolerated the procedure well without complications. She will be sent to postop recovery for a period of observation. She will be sent to the floor for care. Plan on getting a INTERNAL AUDITOR consult to evaluate this 17 cm mass which appeared to be a fibroid intraoperatively. I attest to the content of the Intraoperative Record and any orders documented therein. Any exceptions are noted below. MIRI
[2020-07-27] MEDS: LACTATED RINGER'S 1,000 ML IV SCH ×3 (04:05→21:23)
[2020-07-27] MEDS ORDERED: COUGH DROP (SUGAR FREE) LOZ 24 LOZ/1 BOX BUCCAL ONE (04:41)
[2020-07-27] MEDS: oxyCODONE/ACETAMINOPHEN 5mg/325mg TAB PO PRN (08:52)
[2020-07-27 10:40] LABS: Basophils # (auto) 0.01 K/uL (0-0.2); Eosinophils # (auto) 0.01 K/uL (0-0.5); Hematocrit (blood only) 36.6 % (37-47); Hemoglobin 11.5 g/dL (12.0-16.0); Immature Granulocytes # (auto) 0.13 K/uL (0.00-0.02); Immature Granulocytes % (auto) 0.6 %; Lymphocytes # (auto) 0.93 K/uL (1.2-3.4); Lymphocytes % (auto) 4.2 %; Mean Corpuscular Hemoglobin 24.7 pg (25-34); Mean Corpuscular Volume 78.7 fL (80-100); Mean Platelet Volume 11.4 fL (7.4-10.4); Monocytes # (auto) 2.01 K/uL (0.11-0.59); Monocytes % (auto) 9.2 %; Neutrophils # (auto) 18.83 K/uL (1.4-6.5); Platelet Count 282 K/uL (130-400); RDW Coefficient of Variation 17.7 % (11.5-14.5); RDW Standard Deviation 50.6 fL (36.4-46.3); Red Blood Count 4.65 M/uL (4.2-5.4); White Blood Count 21.92 K/uL (4.8-10.8)
[2020-07-27 10:41] LABS: Mean Corpuscular Hgb Conc 31.4 g/dL (32-36)
--- NOTE | 2020-07-27 10:57 | Progress Note ---
Date of Service July 27, 2020 Assessment & Plan Admission and Anticipated Discharge Date Admission Date: July 26, 2020 Subjective [employer]NER Consult Pt seen and examined Report is dictated Plan f/u with TECHNICAL ADMINISTRATIVE ASSISTANT as out patient plan discussed with pt and her nurse Results & Data ([facility]) Vital Signs (Past 12 Hours) Vital Signs Temp Pulse Resp BP Pulse Ox 07/27/20 07:21 36.8 C 122 H 20 161/94 H 94 07/27/20 03:41 36.6 C 102 H 16 152/96 H 93 07/26/20 23:54 92 07/26/20 23:52 36.7 C 104 H 21 160/86 H 88 L
[2020-07-27 11:00] LABS: Albumin Level 2.6 gm/dl (3.4-5.0); BUN Creatinine Ratio 28.5 (10-20); Calcium 8.7 mg/dl (8.5-10.1); Creatinine Clr Calc Pharmacy 169.3 ml/min; Est GFR (Non-African American) 108.7
[2020-07-27 11:10] LABS: Albumin Globulin Ratio 0.6 (0.9-2); Bilirubin,Total 0.6 mg/dl (0.2-1); Globulin 4.6 gm/dl (2.5-4.0); Total Protein 7.2 gm/dl (6.4-8.2)
--- NOTE | 2020-07-27 11:21 | Electrocardiogram Report ---
Test Reason : Blood Pressure : / mmHG Vent. Rate : 106 BPM Atrial Rate : 106 BPM P-R Int : 146 ms QRS Dur : 088 ms QT Int : 374 ms P-R-T Axes : 045 029 049 degrees QTc Int : 496 ms Sinus tachycardia Possible Left atrial enlargement Nonspecific ST abnormality Borderline ECG No previous ECGs available Confirmed by Diallo Bianchi ([id number]) on 07/27/2020 11:21:01 AM Referred By: REFERRED SELF Confirmed By:Thom Bianchi
[2020-07-27] MEDS ORDERED: HYDROmorphone INJ 1 MG/ML SYRINGE IV PRN (12:57)
[2020-07-27] MEDS ORDERED: HYDROmorphone INJ 0.5 MG/0.5 ML SYR IV PRN (12:57)
--- NOTE | 2020-07-27 13:03 | Surgery Progress Note ---
Date of Service July 27, 2020 Assessment & Plan (1) Acute cholecystitis: POD # 1 s/p lap hernán -afebrile, tachycardic, hypertensive (likely secondary to pain) - postop gas pain, bloating - low appetite - leukocytosis of 21K (15k preop) - LFTs, tbili wnl Plan: Add IV Dilaudid prn pain to see if pain better controlled than with Morphine prn Needs to ambulate to help dissipate intraabdominal gas Simethicone prn bloating IV zofran prn nausea PT/OT consults OBGYN outpatient follow-up for large 17 cm uterine mass repeat am labs incentive spirometry SCDs as patient is not ambulatory Dr. Nuno has seen patient, agrees with above. Admission and Anticipated Discharge Date Admission Date: July 26, 2020 Subjective having a lot of pain, currently 8 out of 10 describes pain as bloating and gas pains, unable to pass gas, no belching not much incisional pain not much urination no chest pain or shortness of breath Physical Exam Constitutional: + morbidly obese and cooperative; no acute distress and not in distress Respiratory: normal respiratory effort; no respiratory distress and no labored breathing Gastrointestinal (Abdomen): Inspection/Auscultation: + abdomen distended and + abdominal surgical incision (covered with dressings, dry) Percussion/Palpation: + abdomen tender (epigastric and at incision sites), abdomen soft and + abdominal mass (large intra-abdominal mass); no guarding and abdomen not rigid Skin: no rashes, warm and dry Psychiatric: Orientation: alert and oriented x 3 Results & Data ([facility]) Vital Signs (Past 12 Hours) Vital Signs Temp Pulse Resp BP Pulse Ox 07/27/20 07:21 36.8 C 122 H 20 161/94 H 94 07/27/20 03:41 36.6 C 102 H 16 152/96 H 93 Laboratory Results 07/27/20 07/27/20 07/26/20 Range/Units 10:29 10:29 15:15 WBC 21.92 H (4.8-10.8) K/uL RBC 4.65 (4.2-5.4) M/uL Hgb 11.5 L (12.0-16.0) g/dL Hct 36.6 L (37-47) % MCV 78.7 L (80-100) fL MCH 24.7 L (25-34) pg MCHC 31.4 L (32-36) g/dL RDW Std Deviation 50.6 H (36.4-46.3) fL RDW Coeff of [place] 17.7 H (11.5-14.5) % Plt Count 282 (130-400) K/uL MPV 11.4 H (7.4-10.4) fL Immature Gran % (Auto) 0.6 % Neut % (Auto) 86.0 % Lymph % (Auto) 4.2 % [place] % (Auto) 9.2 % Eos % (Auto) 0.0 % Baso % (Auto) 0.0 % Neut # (Auto) 18.83 H (1.4-6.5) K/uL Lymph # (Auto) 0.93 L (1.2-3.4) K/uL [place] # (Auto) 2.01 H (0.11-0.59) K/uL Eos # (Auto) 0.01 (0-0.5) K/uL Baso # (Auto) 0.01 (0-0.2) K/uL Immature Gran # (Auto) 0.13 H (0.00-0.02) K/uL Sodium 135 L (136-145) mmol/L Potassium 4.0 D (3.5-5.1) mmol/L Chloride 103 (98-107) mmol/L Carbon Dioxide 28 (21-32) mmol/L Anion Gap 4.0 (3-11) BUN 17 (7-18) mg/dl Creatinine 0.61 (0.6-1.2) mg/dl Est Cr Clr Drug Dosing 169.3 ml/min Est GFR ( Amer) 126.0 Est GFR (Non-Af Amer) 108.7 BUN/Creatinine Ratio 28.5 H (10-20) Glucose 128 H (70-99) mg/dl Calcium 8.7 (8.5-10.1) mg/dl Total Bilirubin 0.6 (0.2-1) mg/dl AST 35 (15-37) U/L ALT 26 (12-78) U/L Alkaline Phosphatase 85 (45-117) U/L Total Protein 7.2 (6.4-8.2) gm/dl Albumin 2.6 L (3.4-5.0) gm/dl Globulin 4.6 H (2.5-4.0) gm/dl Albumin/Globulin Ratio 0.6 L (0.9-2) Urine Color Urine Appearance (Clear) Urine pH (4.5-7.5) Ur Specific [place] (1.000-1.030) Urine Protein (Negative) Urine Glucose (UA) (Negative) Urine Ketones (Negative) Urine Blood (Negative) Urine Nitrite (Negative) Urine Bilirubin (Negative) Urine Urobilinogen (Negative) Ur Leukocyte Esterase (Negative) Urine WBC (Auto) (0-5) /hpf Urine RBC (Auto) (0-4) /hpf U Hyaline Cast (Auto) (0-5) /lpf U Epithel Cells (Auto) (0-5) /lpf Urine Bacteria (Auto) (Negative) Ur Renal Epithelial Cell Urine Test (Negative) Urine Opiates Screen (Neg) U Codeine Confrm GC/MS Pending Ur Morphine (GC/MS) Pending Ur Hydrocodone (GC/MS) Pending Ur Norhydrocodone Pending Ur Noroxycodone Pending Urine Oxycodone (GC/MS) Pending U Oxymorphone GC/MS Pending Ur Methadone, Qual (Neg) Ur Hydromorphone (GC/MS) Pending Urine Barbiturates (Neg) Ur Phencyclidine (PCP) (Neg) U Amphetamin/Meth Scrn (Neg) MDMA (Ecstasy) Screen (Neg) U Benzodiazepines Scrn (Neg) Ur Cocaine Metabolite (Neg) U Marijuana (THC) Screen (Neg) Drug Screen Comment Pending COVID-19 Eval Order SARS-CoV-2, RNA, NAAT (NEGATIVE) 07/26/20 07/26/20 07/26/20 Range/Units 15:15 15:15 15:15 WBC (4.8-10.8) K/uL RBC (4.2-5.4) M/uL Hgb (12.0-16.0) g/dL Hct (37-47) % MCV (80-100) fL MCH (25-34) pg MCHC (32-36) g/dL RDW Std Deviation (36.4-46.3) fL RDW Coeff of [place] (11.5-14.5) % Plt Count (130-400) K/uL MPV (7.4-10.4) fL Immature Gran % (Auto) % Neut % (Auto) % Lymph % (Auto) % [place] % (Auto) % Eos % (Auto) % Baso % (Auto) % Neut # (Auto) (1.4-6.5) K/uL Lymph # (Auto) (1.2-3.4) K/uL [place] # (Auto) (0.11-0.59) K/uL Eos # (Auto) (0-0.5) K/uL Baso # (Auto) (0-0.2) K/uL Immature Gran # (Auto) (0.00-0.02) K/uL Sodium (136-145) mmol/L Potassium (3.5-5.1) mmol/L Chloride (98-107) mmol/L Carbon Dioxide (21-32) mmol/L Anion Gap (3-11) BUN (7-18) mg/dl Creatinine (0.6-1.2) mg/dl Est Cr Clr Drug Dosing ml/min Est GFR ( Amer) Est GFR (Non-Af Amer) BUN/Creatinine Ratio (10-20) Glucose (70-99) mg/dl Calcium (8.5-10.1) mg/dl Total Bilirubin (0.2-1) mg/dl AST (15-37) U/L ALT (12-78) U/L Alkaline Phosphatase (45-117) U/L Total Protein (6.4-8.2) gm/dl Albumin (3.4-5.0) gm/dl Globulin (2.5-4.0) gm/dl Albumin/Globulin Ratio (0.9-2) Urine Color Dark Yellow Urine Appearance Clear (Clear) Urine pH 5.5 (4.5-7.5) Ur Specific [place] 1.036 H (1.000-1.030) Urine Protein 2+ H (Negative) Urine Glucose (UA) Negative (Negative) Urine Ketones 3+ H (Negative) Urine Blood 3+ H (Negative) Urine Nitrite Negative (Negative) Urine Bilirubin 1+ H (Negative) Urine Urobilinogen Negative (Negative) Ur Leukocyte Esterase Trace H (Negative) Urine WBC (Auto) >30 H (0-5) /hpf Urine RBC (Auto) >30 H (0-4) /hpf U Hyaline Cast (Auto) 0 (0-5) /lpf U Epithel Cells (Auto) >30 H (0-5) /lpf Urine Bacteria (Auto) Negative (Negative) Ur Renal Epithelial Cell Not Reportable Urine Test Negative (Negative) Urine Opiates Screen Pos H (Neg) U Codeine Confrm GC/MS Ur Morphine (GC/MS) Ur Hydrocodone (GC/MS) Ur Norhydrocodone Ur Noroxycodone Urine Oxycodone (GC/MS) U Oxymorphone GC/MS Ur Methadone, Qual Neg (Neg) Ur Hydromorphone (GC/MS) Urine Barbiturates Neg (Neg) Ur Phencyclidine (PCP) Neg (Neg) U Amphetamin/Meth Scrn Neg (Neg) MDMA (Ecstasy) Screen Neg (Neg) U Benzodiazepines Scrn Neg (Neg) Ur Cocaine Metabolite Neg (Neg) U Marijuana (THC) Screen Neg (Neg) Drug Screen Comment COVID-19 Eval Order SARS-CoV-2, RNA, NAAT (NEGATIVE) 07/26/20 07/26/20 Range/Units 13:10 13:10 WBC (4.8-10.8) K/uL RBC (4.2-5.4) M/uL Hgb (12.0-16.0) g/dL Hct (37-47) % MCV (80-100) fL MCH (25-34) pg MCHC (32-36) g/dL RDW Std Deviation (36.4-46.3) fL RDW Coeff of [place] (11.5-14.5) % Plt Count (130-400) K/uL MPV (7.4-10.4) fL Immature Gran % (Auto) % Neut % (Auto) % Lymph % (Auto) % [place] % (Auto) % Eos % (Auto) % Baso % (Auto) % Neut # (Auto) (1.4-6.5) K/uL Lymph # (Auto) (1.2-3.4) K/uL [place] # (Auto) (0.11-0.59) K/uL Eos # (Auto) (0-0.5) K/uL Baso # (Auto) (0-0.2) K/uL Immature Gran # (Auto) (0.00-0.02) K/uL Sodium (136-145) mmol/L Potassium (3.5-5.1) mmol/L Chloride (98-107) mmol/L Carbon Dioxide (21-32) mmol/L Anion Gap (3-11) BUN (7-18) mg/dl Creatinine (0.6-1.2) mg/dl Est Cr Clr Drug Dosing ml/min Est GFR ( Amer) Est GFR (Non-Af Amer) BUN/Creatinine Ratio (10-20) Glucose (70-99) mg/dl Calcium (8.5-10.1) mg/dl Total Bilirubin (0.2-1) mg/dl AST (15-37) U/L ALT (12-78) U/L Alkaline Phosphatase (45-117) U/L Total Protein (6.4-8.2) gm/dl Albumin (3.4-5.0) gm/dl Globulin (2.5-4.0) gm/dl Albumin/Globulin Ratio (0.9-2) Urine Color Urine Appearance (Clear) Urine pH (4.5-7.5) Ur Specific [place] (1.000-1.030) Urine Protein (Negative) Urine Glucose (UA) (Negative) Urine Ketones (Negative) Urine Blood (Negative) Urine Nitrite (Negative) Urine Bilirubin (Negative) Urine Urobilinogen (Negative) Ur Leukocyte Esterase (Negative) Urine WBC (Auto) (0-5) /hpf Urine RBC (Auto) (0-4) /hpf U Hyaline Cast (Auto) (0-5) /lpf U Epithel Cells (Auto) (0-5) /lpf Urine Bacteria (Auto) (Negative) Ur Renal Epithelial Cell Urine Test (Negative) Urine Opiates Screen (Neg) U Codeine Confrm GC/MS Ur Morphine (GC/MS) Ur Hydrocodone (GC/MS) Ur Norhydrocodone Ur Noroxycodone Urine Oxycodone (GC/MS) U Oxymorphone GC/MS Ur Methadone, Qual (Neg) Ur Hydromorphone (GC/MS) Urine Barbiturates (Neg) Ur Phencyclidine (PCP) (Neg) U Amphetamin/Meth Scrn (Neg) MDMA (Ecstasy) Screen (Neg) U Benzodiazepines Scrn (Neg) Ur Cocaine Metabolite (Neg) U Marijuana (THC) Screen (Neg) Drug Screen Comment COVID-19 Eval [facility] SARS-[facility]-2, RNA, NAAT NEGATIVE (NEGATIVE)
[2020-07-27] MEDS: SIMETHICONE 80 MG CHEW PO PRN ×2 (14:05→20:34)
[2020-07-27] MEDS: MoRPHine SULFATE 4 MG/ML 1 ML CARP\\VIAL IV PRN ×2 (15:22→19:30)
--- NOTE | 2020-07-28 02:34 | Consultation Report ---
DATE OF CONSULTATION: 07/27/2020 RATE MARKER CONSULT Consult is placed by Dr. Sweet. HISTORY OF PRESENT ILLNESS: This is a 44-year-old morbidly obese patient who presented through the ER on 07/26/2020 with abdominal pain. She was worked up and found to have cholecystitis. She underwent surgery with Dr. Sweet. Details of surgery are in the surgical note. As part of her workup, and intraoperatively, she was found to have an abdominal mass, which was suspected to be a fibroid uterus. A RATE MARKER consult was placed. The consult was placed after the patient has had surgery this morning on 07/27/2020. In the morning the consult was placed. I have had the opportunity to see the patient. As stated above, surgery has already been performed. The patient denies any irregular bleeding or heavy bleeding. She has not seen RATE MARKER in over 10 years. She reports her menses have been spacing out, but she has never had any problems or concerns of a fibroid uterus. She had never been told she had a fibroid uterus and does not have any trouble with bowel movements or holding her urine. PAST MEDICAL HISTORY: 1. Morbid obesity. 2. History of kidney stones. 3. History of cholecystitis. PAST SURGICAL HISTORY: None. SOCIAL HISTORY: The patient denies tobacco, drug or alcohol use. The patient is and lives with spouse in [place] PHYSICAL EXAMINATION: GENERAL: Well-developed, well-nourished, obese white female. BMI is 67.1. VITAL SIGNS: Blood pressure is 133/90, pulse is 108, respirations 20, temperature 36.9. HEART: S1, S2, regular rhythm and rate. LUNGS: Clear to auscultation bilaterally. ABDOMEN: The patient as stated above is morbidly obese. She has positive bowel sounds. Incision site from cholecystectomy appears dry and intact. PELVIC: Deferred today because the patient will not be able to tolerate the exam; one because of obesity and two, because she is postop. EXTREMITIES: No cyanosis, clubbing or edema. ASSESSMENT AND PLAN: A 44-year-old admitted for acute cholecystitis. The patient's incidental finding of a fibroid uterus is seen on ultrasound. The consult is placed after surgery has been performed. I have therefore discussed the CT findings with the patient. Plan is for her to schedule a followup appointment as an outpatient in the office where the fibroid uterus will be further evaluated. There is some question of irregular bleeding which can also be evaluated as an outpatient. That will include an endometrial biopsy. Once that biopsy is performed we will discuss with patient if any further procedures needed to be performed for her RATE MARKER care.
[2020-07-28] MEDS: LACTATED RINGER'S 1,000 ML IV SCH ×2 (05:18→09:46)
[2020-07-28 06:12] LABS: Basophils # (auto) 0.01 K/uL (0-0.2); Basophils % (auto) 0.1 %; Eosinophils # (auto) 0.04 K/uL (0-0.5); Eosinophils % (auto) 0.2 %; Hematocrit (blood only) 36.6 % (37-47); Hemoglobin 11.7 g/dL (12.0-16.0); Immature Granulocytes # (auto) 0.11 K/uL (0.00-0.02); Immature Granulocytes % (auto) 0.6 %; Lymphocytes # (auto) 1.37 K/uL (1.2-3.4); Lymphocytes % (auto) 7.6 %; Mean Corpuscular Hemoglobin 25.1 pg (25-34); Mean Corpuscular Volume 78.5 fL (80-100); Mean Platelet Volume 11.5 fL (7.4-10.4); Monocytes # (auto) 1.46 K/uL (0.11-0.59); Monocytes % (auto) 8.1 %; Neutrophils # (auto) 14.94 K/uL (1.4-6.5); Neutrophils % (auto) 83.4 %; Platelet Count 294 K/uL (130-400); RDW Coefficient of Variation 17.6 % (11.5-14.5); RDW Standard Deviation 50.8 fL (36.4-46.3); Red Blood Count 4.66 M/uL (4.2-5.4); White Blood Count 17.93 K/uL (4.8-10.8)
[2020-07-28 06:34] LABS: Albumin Level 2.5 gm/dl (3.4-5.0); BUN Creatinine Ratio 28.5 (10-20); Calcium 9.5 mg/dl (8.5-10.1); Creatinine Clr Calc Pharmacy 143.5 ml/min; Est GFR (African American) 116.4; Est GFR (Non-African American) 100.4; Potassium 4.1 mmol/L (3.5-5.1)
[2020-07-28 06:37] LABS: Albumin Globulin Ratio 0.5 (0.9-2); Bilirubin,Total 1.1 mg/dl (0.2-1); Globulin 4.8 gm/dl (2.5-4.0); Total Protein 7.3 gm/dl (6.4-8.2)
[2020-07-28] MEDS ORDERED: PIPERACILL/TAZOBAC CONSULT ACTIVE PRN (07:56)
[2020-07-28] MEDS ORDERED: bisacodyL 10 MG SUPP PR STA ×2 (08:40→18:03)
--- NOTE | 2020-07-28 08:41 | Surgery Progress Note ---
Date of Service July 28, 2020 Assessment & Plan (1) Acute cholecystitis: POD # 2 s/p lap hernán - afebrile, leukocytosis improved to 17K (21K previously) - Tachycardic, HR in 110's (secondary to pain?) asymptomatic - Hypertensive Systolic 145 today (160's previously) - t. bili up to 1.1 today (0.6 yesterday) LFTS and alk phos wnl - moderate postop/gas pain, slightly improved Plan: Patient is somewhat unmotivated. States she would get up to walk but the pain stops her from doing that. Does not walk much at home, lives in mobile home. Encouraged ambulation multiple times. 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 Continue pain management as needed IV Zosyn given increased wbc, repeat in am diet advance as tolerated Miralax and Dulcolax suppository today to hopefully stimulate bowel movement SCDs Incentive spirometry Repeat am cbc and cmp IV Fluids decreaed to 50 cc/hr Dr. Nuno has seen and examined patient, agrees with above (2) Uterine mass: Admission and Anticipated Discharge Date Admission Date: July 26, 2020 Subjective still having abdominal pain, pain about the same. Seems to let up a little more. Unable to move around though because of the pain. " I would get up and walk if I weren't having the pain" no bowel movement in about 36 hours no nausea or vomiting menstrual bleeding Physical Exam Constitutional: + morbidly obese No acute distress, not ill appearing Respiratory: normal respiratory effort Gastrointestinal (Abdomen): Inspection/Auscultation: + abdomen distended and + abdominal surgical incision (covered with dressings, clean and dry) Percussion/Palpation: + abdomen tender (epigastrium, no guarding, rigidity peritonitis) and + abdominal mass (large palpable intra-abdominal mass) Skin: no rashes, warm and dry Psychiatric: Orientation: alert and oriented x 3 Results & Data ([facility]) Vital Signs (Past 12 Hours) Vital Signs Temp Pulse Resp BP Pulse Ox 07/28/20 07:41 37.1 C 115 H 18 145/94 H 95 07/27/20 23:25 86 L 07/27/20 23:12 37.0 C 118 H 17 155/85 H 92 Laboratory Results 07/28/20 07/28/20 07/27/20 Range/Units 05:38 05:38 10:29 WBC 17.93 H (4.8-10.8) K/uL RBC 4.66 (4.2-5.4) M/uL Hgb 11.7 L (12.0-16.0) g/dL Hct 36.6 L (37-47) % MCV 78.5 L (80-100) fL MCH 25.1 (25-34) pg MCHC 32.0 (32-36) g/dL RDW Std Deviation 50.8 H (36.4-46.3) fL RDW Coeff of [place] 17.6 H (11.5-14.5) % Plt Count 294 (130-400) K/uL MPV 11.5 H (7.4-10.4) fL Immature Gran % (Auto) 0.6 % Neut % (Auto) 83.4 % Lymph % (Auto) 7.6 % [place] % (Auto) 8.1 % Eos % (Auto) 0.2 % Baso % (Auto) 0.1 % Neut # (Auto) 14.94 H (1.4-6.5) K/uL Lymph # (Auto) 1.37 (1.2-3.4) K/uL [place] # (Auto) 1.46 H (0.11-0.59) K/uL Eos # (Auto) 0.04 (0-0.5) K/uL Baso # (Auto) 0.01 (0-0.2) K/uL Immature Gran # (Auto) 0.11 H (0.00-0.02) K/uL Sodium 134 L 135 L (136-145) mmol/L Potassium 4.1 4.0 D (3.5-5.1) mmol/L Chloride 100 103 (98-107) mmol/L Carbon Dioxide 29 28 (21-32) mmol/L Anion Gap 5.0 4.0 (3-11) BUN 20 H 17 (7-18) mg/dl Creatinine 0.72 0.61 (0.6-1.2) mg/dl Est Cr Clr Drug Dosing 143.5 169.3 ml/min Est GFR ( Amer) 116.4 126.0 Est GFR (Non-Af Amer) 100.4 108.7 BUN/Creatinine Ratio 28.5 H 28.5 H (10-20) Glucose 111 H 128 H (70-99) mg/dl Calcium 9.5 8.7 (8.5-10.1) mg/dl Total Bilirubin 1.1 H D 0.6 (0.2-1) mg/dl AST 27 35 (15-37) U/L ALT 28 26 (12-78) U/L Alkaline Phosphatase 99 85 (45-117) U/L Total Protein 7.3 7.2 (6.4-8.2) gm/dl Albumin 2.5 L 2.6 L (3.4-5.0) gm/dl Globulin 4.8 H 4.6 H (2.5-4.0) gm/dl Albumin/Globulin Ratio 0.5 L 0.6 L (0.9-2) 07/27/20 Range/Units 10:29 WBC 21.92 H (4.8-10.8) K/uL RBC 4.65 (4.2-5.4) M/uL Hgb 11.5 L (12.0-16.0) g/dL Hct 36.6 L (37-47) % MCV 78.7 L (80-100) fL MCH 24.7 L (25-34) pg MCHC 31.4 L (32-36) g/dL RDW Std Deviation 50.6 H (36.4-46.3) fL RDW Coeff of [place] 17.7 H (11.5-14.5) % Plt Count 282 (130-400) K/uL MPV 11.4 H (7.4-10.4) fL Immature Gran % (Auto) 0.6 % Neut % (Auto) 86.0 % Lymph % (Auto) 4.2 % [place] % (Auto) 9.2 % Eos % (Auto) 0.0 % Baso % (Auto) 0.0 % Neut # (Auto) 18.83 H (1.4-6.5) K/uL Lymph # (Auto) 0.93 L (1.2-3.4) K/uL [place] # (Auto) 2.01 H (0.11-0.59) K/uL Eos # (Auto) 0.01 (0-0.5) K/uL Baso # (Auto) 0.01 (0-0.2) K/uL Immature Gran # (Auto) 0.13 H (0.00-0.02) K/uL Sodium (136-145) mmol/L Potassium (3.5-5.1) mmol/L Chloride (98-107) mmol/L Carbon Dioxide (21-32) mmol/L Anion Gap (3-11) BUN (7-18) mg/dl Creatinine (0.6-1.2) mg/dl Est Cr Clr Drug Dosing ml/min Est GFR ( Amer) Est GFR (Non-Af Amer) BUN/Creatinine Ratio (10-20) Glucose (70-99) mg/dl Calcium (8.5-10.1) mg/dl Total Bilirubin (0.2-1) mg/dl AST (15-37) U/L ALT (12-78) U/L Alkaline Phosphatase (45-117) U/L Total Protein (6.4-8.2) gm/dl Albumin (3.4-5.0) gm/dl Globulin (2.5-4.0) gm/dl Albumin/Globulin Ratio (0.9-2)
[2020-07-28] MEDS ORDERED: PIPERACILLIN/TAZOBACTAM 4.5 GM in DEXTROSE 5% 100 ML IV ONE (09:30)
[2020-07-28] MEDS: POLYETHYLENE (MIRALAX) 17 GM PACK PO SCH (09:48)
[2020-07-28] MEDS: SIMETHICONE 80 MG CHEW PO PRN (14:05)
[2020-07-28] MEDS: PIPERACILLIN/TAZOBACTAM 4.5 GM in DEXTROSE 5% 100 ML IV SCH (16:11)
[2020-07-28] MEDS ORDERED: POLYETHYLENE (MIRALAX) 17 GM PACK PO STA (18:04)
[2020-07-28] MEDS: ZOLPIDEM TARTRATE 5 MG TAB PO PRN (20:53)
[2020-07-29] MEDS: PIPERACILLIN/TAZOBACTAM 4.5 GM in DEXTROSE 5% 100 ML IV SCH ×3 (00:25→16:00)
[2020-07-29] MEDS: LACTATED RINGER'S 1,000 ML IV SCH ×2 (04:54→20:03)
[2020-07-29] MEDS: ACETAMINOPHEN 325 MG TAB PO PRN (04:54)
[2020-07-29 05:53] LABS: Codeine Urine NEGATIVE ng/mL (<50); Hydrocodone Urine NEGATIVE ng/mL (<50); Hydromor Urine 659 ng/mL (<50); Morphine Urine 8500 ng/mL (<50); Norhydrocodone Conf Ur NEGATIVE ng/mL (<50); Noroxycodone Urine NEGATIVE ng/mL (<50); Oxycodone Urine NEGATIVE ng/mL (<50); Oxymorph Urine NEGATIVE ng/mL (<50)
[2020-07-29 06:15] LABS: Basophils # (auto) 0.02 K/uL (0-0.2); Basophils % (auto) 0.2 %; Eosinophils # (auto) 0.27 K/uL (0-0.5); Hematocrit (blood only) 32.7 % (37-47); Hemoglobin 10.3 g/dL (12.0-16.0); Immature Granulocytes # (auto) 0.11 K/uL (0.00-0.02); Immature Granulocytes % (auto) 0.8 %; Lymphocytes # (auto) 1.63 K/uL (1.2-3.4); Lymphocytes % (auto) 12.2 %; Mean Corpuscular Hemoglobin 24.6 pg (25-34); Mean Corpuscular Hgb Conc 31.5 g/dL (32-36); Mean Platelet Volume 11.4 fL (7.4-10.4); Monocytes # (auto) 1.37 K/uL (0.11-0.59); Monocytes % (auto) 10.3 %; Neutrophils # (auto) 9.92 K/uL (1.4-6.5); Neutrophils % (auto) 74.5 %; Platelet Count 261 K/uL (130-400); RDW Coefficient of Variation 17.5 % (11.5-14.5); RDW Standard Deviation 50.3 fL (36.4-46.3); Red Blood Count 4.19 M/uL (4.2-5.4); White Blood Count 13.32 K/uL (4.8-10.8)
[2020-07-29] MEDS: SIMETHICONE 80 MG CHEW PO PRN (06:32)
[2020-07-29 06:48] LABS: Albumin Level 2.2 gm/dl (3.4-5.0); BUN Creatinine Ratio 34.3 (10-20); Creatinine Clr Calc Pharmacy 202.5 ml/min; Est GFR (African American) 133.7; Est GFR (Non-African American) 115.3; Potassium 3.6 mmol/L (3.5-5.1)
[2020-07-29 06:51] LABS: Albumin Globulin Ratio 0.5 (0.9-2); Bilirubin,Total 0.9 mg/dl (0.2-1); Globulin 4.3 gm/dl (2.5-4.0); Total Protein 6.5 gm/dl (6.4-8.2)
[2020-07-29] MEDS: POLYETHYLENE (MIRALAX) 17 GM PACK PO SCH (08:20)
--- NOTE | 2020-07-29 08:24 | Surgery Progress Note ---
Date of Service July 29, 2020 Assessment & Plan (1) Acute cholecystitis: POD # 3 s/p lap hernán - afebrile, leukocytosis improved to 13K (17K previously) - Tachycardic, HR in 110's - previously thought to be secondary to pain but had episode of chest pain this am at 630 - Hypertensive Systolic 183 today (140's previously) - t. 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 She is now lying in bed. Walked with PT yesterday with walker. Patient refusing narcotic pain medication as it causes constipation and has not had bowel movement yet Continue Miralax daily Could not do suppository last night due to pain Continue IV Zosyn for now Work-up for chest pain and medicine consulted. Concern for possible PE given morbid obesity, little ambulation Incentive spirometry ordered but is not in room. Told nurse this needs to be given to patient. Likely has atelectasis postop as well. (2) Uterine mass: 17 cm uterine mass on CT scan Looked to be possible Fibroid intraoperatively OBGYN consulted plan for outpatient follow-up with OBGYN Menstrual bleeding has been persistent, easing up per patient (3) Chest pain: EKG with sinus tachycardia Concern for ACS/ possible PE given morbid obesity and little ambulation in postop setting Medicine consulted, await work up (4) HTN (hypertension): (5) Sinus tachycardia: (6) Morbid obesity: Discussed with Dr. Nuno who agrees with above. Admission and Anticipated Discharge Date Admission Date: July 28, 2020 Subjective paged at 730 am by patient's nurse. Patient had chest pain early this morning. EKG showed sinus Tachycardia Described pain as Sudden left chest pain with pain up to left shoulder. Sharp and pressure like. States it feels like a "bubble" Still unable to pas gas or bowel movement. No shortness of breath sweating with the onset of chest pain States she has had episode of chest pain in the past maybe once every 2 weeks but not this severe. No PCP. Shortness of breath when she walks but no chest pain when she walks at baseline Worked with PT yesterday, walked 80 feet with walker. Had some shortness of breath but no chest pain. Still having abdominal pain, pain mostly upper abdomen. Does not want any pain medication as it causes constipation but she does not get up and move because of the pain. Physical Exam Constitutional: + morbidly obese, cooperative, comfortable and + diaphoretic; not ill appearing and not in distress Respiratory: normal respiratory effort; no respiratory distress, no labored breathing, no retractions and does not use accessory muscles Auscultation: + diminished lung sounds; no crackles, no rales, no rhonchi and no wheezes Cardiovascular: Rate/Rhythm: + tachycardic Heart Sounds: normal S1 and normal S2; no murmur Extremities: no calf tenderness, no pedal edema and no edema Chest (Breasts): Chest: normal inspection of chest Additional Comments: no chest pain on palpation Gastrointestinal (Abdomen): Inspection/Auscultation: abdomen normal to inspection and + abdomen distended (due to intra-abdominal mass) Percussion/Palpation: + abdomen tender (epigastrium), abdomen soft and + ab dominal mass (large intra-abdominal mass); no guarding and abdomen not rigid Musculoskeletal: Extremities: extremities normal to inspection Skin: no rashes, warm and dry + incision (covered with dry dressings, clean) Psychiatric: Orientation: alert, oriented x 3 and cooperative Results & Data ([facility]) Vital Signs (Past 12 Hours) Vital Signs Temp Pulse Resp BP BP Pulse Ox 07/29/20 07:25 36.6 C 113 H 16 183/97 H 91 07/29/20 06:20 37 C 104 H 20 166/102 H 94 07/28/20 23:24 37 C 95 H 20 171/81 H 95 07/28/20 20:58 115 H 16 95 Laboratory Results 07/29/20 07/29/20 07/26/20 Range/Units 05:53 05:53 15:15 WBC 13.32 H (4.8-10.8) K/uL RBC 4.19 L (4.2-5.4) M/uL Hgb 10.3 L (12.0-16.0) g/dL Hct 32.7 L (37-47) % MCV 78.0 L (80-100) fL MCH 24.6 L (25-34) pg MCHC 31.5 L (32-36) g/dL RDW Std Deviation 50.3 H (36.4-46.3) fL RDW Coeff of [place] 17.5 H (11.5-14.5) % Plt Count 261 (130-400) K/uL MPV 11.4 H (7.4-10.4) fL Immature Gran % (Auto) 0.8 % Neut % (Auto) 74.5 % Lymph % (Auto) 12.2 % [place] % (Auto) 10.3 % Eos % (Auto) 2.0 % Baso % (Auto) 0.2 % Neut # (Auto) 9.92 H (1.4-6.5) K/uL Lymph # (Auto) 1.63 (1.2-3.4) K/uL [place] # (Auto) 1.37 H (0.11-0.59) K/uL Eos # (Auto) 0.27 (0-0.5) K/uL Baso # (Auto) 0.02 (0-0.2) K/uL Immature Gran # (Auto) 0.11 H (0.00-0.02) K/uL Sodium 136 (136-145) mmol/L Potassium 3.6 (3.5-5.1) mmol/L Chloride 101 (98-107) mmol/L Carbon Dioxide 28 (21-32) mmol/L Anion Gap 7.0 (3-11) BUN 17 (7-18) mg/dl Creatinine 0.51 L (0.6-1.2) mg/dl Est Cr Clr Drug Dosing 202.5 ml/min Est GFR ( Amer) 133.7 Est GFR (Non-Af Amer) 115.3 BUN/Creatinine Ratio 34.3 H (10-20) Glucose 95 (70-99) mg/dl Calcium 9.0 (8.5-10.1) mg/dl Total Bilirubin 0.9 (0.2-1) mg/dl AST 17 (15-37) U/L ALT 26 (12-78) U/L Alkaline Phosphatase 101 (45-117) U/L Total Protein 6.5 (6.4-8.2) gm/dl Albumin 2.2 L (3.4-5.0) gm/dl Globulin 4.3 H (2.5-4.0) gm/dl Albumin/Globulin Ratio 0.5 L (0.9-2) U Codeine Confrm GC/MS NEGATIVE (<50) ng/mL Ur Morphine (GC/MS) 8500 H (<50) ng/mL Ur Hydrocodone (GC/MS) NEGATIVE (<50) ng/mL Ur Norhydrocodone NEGATIVE (<50) ng/mL Ur Noroxycodone NEGATIVE (<50) ng/mL Urine Oxycodone (GC/MS) NEGATIVE (<50) ng/mL U Oxymorphone GC/MS NEGATIVE (<50) ng/mL Ur Hydromorphone (GC/MS) 659 H (<50) ng/mL Drug Screen Comment SEE NOTE
--- NOTE | 2020-07-29 09:15 | Consultation ---
Date of Consultation July 29, 2020 Assessment & Plan (1) Chest pain: (2) HTN (hypertension): (3) Sinus tachycardia: (4) Atelectasis: (5) Hypoxia: This is a 44-year-old female who has significant past medical history of morbid obesity and nephrolithiasis who is POD #3 laparoscopic cholecystectomy and developed sudden onset of chest pain this morning at approximately 6:30 AM. Patient is severely obese and has not followed with primary care provider in several years. Likely undiagnosed chronic medical problems at baseline. Onset of chest pain 6:30 AM. Initial impression likely atelectasis, also contributing constipation or ileus. Given significant morbid obesity, postop state hypertension and tachycardia must rule out pulmonary embolism and ACS. Stat EKG, chest x-ray and KUB Stat lipase, CK-MB, troponin and D-dimer Dimer 3960 - will also order b/l lower ext venous doppler CT PE protocol IV Labetalol 10mg PRN SBP > 170 DBP > 100 Incentive spirometry encouraged every hour Encouraged mobility to help promote bowel habits given body habitus likely undiagnosed YANE given O2 requirement at bedtime -will order nocturnal oximetry Patient will need follow-up with PCP and is agreeable to see [facility] -would recommend follow-up appointment at d/c Further recommendations to follow based on imaging and lab results (6) Morbid obesity: Encourage diet and lifestyle modifications BMI 67.1 (7) Anemia: H&H 10.3 and 32.7 Microcytic hypochromic anemia panel in am May be in setting of vaginal bleeding Preop H&H 11.7 and 36.6 (8) Uterine mass: 17 cm large uterine fundal mass noted incidentally on CT scan on admission Follow-up with [facility] as outpatient per their consultation (9) S/P laparoscopic cholecystectomy: POD #3 laparoscopic cholecystectomy Initially tolerated procedure well EBL 40 mL Activity and diet per surgery Pain/wound management per surgery Continue to monitor H&H & encourage incentive spirometry Leukocytosis trending down -continue IV Zosyn Patient was seen and examined in collaboration with Dr. Garcia, please see addendum Thank you for this consultation. We will follow the patient with you during their hospital stay. You can reach a [facility] via pager @ [phone]. Supervising Physician Co-Signing Physician Notes The patient was seen and examined in medical telemetry unit She is morbidly obese and is a status post laparoscopic cholecystectomy on 07/26/20 She was noted to be in chest pain ,hypertensive and tachycardic this morning and hospitalist was consulted Has been feeling a little bit better during examination Has not moved her bowel for the last 4 or 5 days On examination Sitting on a chair without any acute distress Blood pressure noted to be high at 183/97 and pulse 113 which has been improving Chest-decreased breath sound both sides likely secondary to thick chest wall Heart-S1-S2 regular Abdomen-distended, soft, tender right upper quadrant, bowel sounds diminished Xijunjgdwrt-[id number]+ edema bilaterally FASHION ILLUSTRATOR-alert, awake and oriented x3 Her labs, EKG and imaging studies reviewed Did not have any pulmonary embolism and does not have any EKG changes or increasing troponin Noted to be ileus likely secondary to surgery and use of narcotic pain medications Agree with assessment and plan as outlined above by YASMIN Kirkpatrick Dr History of Present Illness Requesting Physician: Maryuri Tsai PA-C Reason for Consultation: Chest Pain Attending Physician: Chandana Nuno MD History of Present Illness This is a 44-year-old female who has significant past medical history of morbid obesity and nephrolithiasis who is POD #3 laparoscopic cholecystectomy and developed sudden onset of chest pain this morning at approximately 6:30 AM. We have been consulted secondary to chest pain. Chest pain started abruptly at approximately 6:30 AM and located along left chest wall with radiation to left shoulder. Pain was 8/10, sharp, associated with diaphoresis, chills, and shortness of breath. Pain was worse with deep breathing and movement and only time improved symptoms. She still has pain 6/10 but is now located in epigastrium and no longer has diaphoresis. She does feel short of breath but feel this is secondary to the pain. Again pain is made worse with deep breathing and/or movement. She has experienced similar pain in past but just resolved on own. She is currently sitting up in bedside chair. She denies any bowel movement since admission, approximately 5 days ago. She has not passed any flatus. She did get up and urinate approximately 2 times last evening. She denies any recent fever, chills, sweats, lightheadedness, dizziness, syncope, cough, hemoptysis, shortness of breath at rest, nausea, vomiting, dysuria, increased urgency or frequency with urination or hematuria. She does have vaginal bleeding and she did have a large uterine mass discovered incidentally on CT scan. [facility] has been contacted and patient will be seen as outpatient. She has not seen or followed up with medical doctor in several years and therefore is unsure of any chronic medical problems she may have. Currently lack of appetite although until this morning she had been tolerating clears. She does live at home with her and does occasionally use a cane for ambulation. She does not use oxygen at home. She is a non- smoker and nondrinker and currently is not employed. According to nursing staff she does have significant lack of mobility but did ambulate with PT yesterday approximately 80 feet. She did not experience CP with this, but did get SOB. She has been requiring oxygen at bedtime. An EKG was performed this morning at onset of chest pain which was similar compared to admission EKG, sinus tach noted. Allergies Allergy/AdvReac Type Severity Reaction Status Date / Time No Known Allergies Allergy Unverified 07/26/20 13:22 Home Medications Medication Instructions Recorded Confirmed Type ibuprofen 0 mg PO UD PRN 07/26/20 07/26/20 History Patient History Medical History (Updated 07/29/20 @ 09:56 by Nanette Rascon PA-C) Acute cholecystitis Kidney stones Morbid obesity Surgical History (Updated 07/29/20 @ 09:28 by Nanette Rascon PA-C) History of dental surgery S/P laparoscopic cholecystectomy Family History (Updated 07/29/20 @ 09:21 by Nanette Rascon PA-C) Father Pacemaker Mother Alive and well Sister Kidney stone Denies family history of Sudden Myocardial infarction Pulmonary embolism Social History Smoking Status: Never smoker Second Hand Exposure: No; Do You Dip or Chew Tobacco: No; Tobacco Cessation Education Requested by Patient: No Hx Alcohol Use: No Hx Substance Use: No Preferred Language: Malagasy Bank Note Designer Required: No Beliefs That Will Affect Care: None marital status: Single Current Living Situation: Family current occupational status: unemployed Other Information That Helps Us Care for You: No Feels Safe at Home: Yes Safety Concerns: Feels Safe At This Time Assistive Devices: None Review of Systems Review of Systems: All systems reviewed & are unremarkable except as noted in HPI & below Physical Exam Physical Exam: Constitutional: Morbidly obese, Bp rechecked BP 148/96, HR 113, 91% RA, appears uncomfortable and in pain, sitting in bedside chair, answers questions appropriately Head: Normocephalic, Atraumatic Eyes: PERRL, conjunctivae normal, anicteric sclerae ENMT: external ear and nose normal, oropharynx normal Neck: trachea midline, no thyromegaly normal visual inspection Respiratory: normal respiratory effort, lungs clear to auscultation, no wheeze, rales, rhonchi. Normal insp/exp effort, no accessory muscle use Cardiovascular: tachycardiac rate, regular rhythm, no murmur, obese lower ext, no overt edema Vessels: no JVD or carotid bruit Chest: normal inspection of chest, no pain to palpation of chest wall Abdomen: absent bowel sounds, incisions/dressings CDI x 4, pain to palpation in epigastrum, distended, soft (but pt feels harder than usual) Musculoskeletal: no cyanosis or clubbing, extremities AROm x 4 Skin: no rashes, warm and dry normal turgor Neurologic: PERRL, EOMI, accommodation nl, no face palsy, no dysarthria CN's II-XI intact bilaterally and moves all extremities Psychiatric: A+Ox3, euthymic affect : deferred Results & Data ([facility]) Vital Signs (Past 12 Hours) Vital Signs Temp Pulse Resp BP BP Pulse Ox 07/29/20 07:25 36.6 C 113 H 16 183/97 H 91 07/29/20 06:20 37 C 104 H 20 166/102 H 94 07/28/20 23:24 37 C 95 H 20 171/81 H 95 Laboratory Results Short CBC 07/29/20 Range/Units 05:53 WBC 13.32 H (4.8-10.8) K/uL Hgb 10.3 L (12.0-16.0) g/dL Hct 32.7 L (37-47) % Plt Count 261 (130-400) K/uL BMP 07/29/20 05:53 Sodium 136 Potassium 3.6 Chloride 101 Carbon Dioxide 28 BUN 17 Creatinine 0.51 L Glucose 95 Calcium 9.0 Liver Function 07/29/20 Range/Units 05:53 Total Bilirubin 0.9 (0.2-1) mg/dl AST 17 (15-37) U/L ALT 26 (12-78) U/L Alkaline Phosphatase 101 (45-117) U/L Albumin 2.2 L (3.4-5.0) gm/dl Diagnostic Findings CXR: 07/29 IMPRESSION: 1. Minimal increased basilar markings statistically atelectatic. No evidence of lobar consolidation CXR: 07/26 IMPRESSION: No active disease in the chest. CT abd/pelvis: 07/26 IMPRESSION: 1. Findings are consistent with acute cholecystitis. Surgical consultation is advised. 2. There is an approximately 17 cm mass arising from or within the uterine fundus. This is pathologically indeterminant and may represent a large fibroid. Neoplasm is not excluded. Gynecological surgical follow-up is recommended. 3. Mild colonic diverticulosis without CT evidence of acute diverticulitis. 4. Left-sided nephrolithiasis. 5. Additional findings as above. Medications Administered Acetaminophen (Acetaminophen 325 Mg Tab) 650 mg PO Q6H PRN PRN Reason: Pain & Pre PT Stop: 08/25/20 14:43 Last Admin: 07/29/20 04:54 Dose: 650 mg Documented by: [id number] Hydromorphone HCl (Hydromorphone Inj 0.5 Mg/0.5 Ml Syr) 0.5 mg IV Q3H PRN PRN Reason: moderate pain Stop: 08/10/20 12:56 Last Admin: 07/28/20 06:09 Dose: 0.5 mg Documented by: [id number] Lactated Ringer's (Lr) 1,000 mls @ 50 mls/hr IV .Q20H ALIE Stop: 08/27/20 07:59 Last Admin: 07/29/20 04:54 Dose: 50 mls/hr Documented by: [id number] Infusion: 07/29/20 04:54 Dose: 50 mls/hr Documented by: [id number] Admin: 07/28/20 09:46 Dose: 50 mls/hr Documented by: [id number] Piperacillin Sod/Tazobactam (Sod 4.5 gm/ Dextrose) 120 mls @ 30 mls/hr IV Q8H ALIE; Protocol Stop: 08/07/20 15:59 Last Admin: 07/29/20 08:19 Dose: 30 mls/hr Documented by: [id number] Infusion: 07/29/20 03:53 Dose: 0 mls/hr Documented by: [id number] Admin: 07/29/20 00:25 Dose: 30 mls/hr Documented by: [id number] Infusion: 07/28/20 19:59 Dose: 0 mls/hr Documented by: [id number] Admin: 07/28/20 16:11 Dose: 30 mls/hr Documented by: [id number] Morphine Sulfate (Morphine Sulfate 2 Mg/Ml Carp) 2 mg IV Q3H PRN PRN Reason: Pain (1,2,3,4,5) & Pre PT Stop: 08/09/20 14:43 Last Admin: 07/26/20 22:58 Dose: 2 mg Documented by: [id number] Morphine Sulfate (Morphine Sulfate 4 Mg/Ml 1 Ml Carp\Vial) 4 mg IV Q3H PRN PRN Reason: Pain (6,7,8,9,10) Stop: 08/09/20 14:43 Last Admin: 07/27/20 19:30 Dose: 4 mg Documented by: [id number] Admin: 07/27/20 15:22 Dose: 4 mg Documented by: [id number] Oxycodone/Acetaminophen (Oxycodone/Acetaminophen 5mg/325mg Tab) 1 tab PO Q4H PRN PRN Reason: MODERATE Pain (4,5,6) & Pre PT Stop: 08/09/20 14:43 Last Admin: 07/27/20 08:52 Dose: 1 tab Documented by: [id number] Oxycodone/Acetaminophen (Oxycodone/Acetaminophen 5mg/325mg Tab) 2 tab PO Q4H PRN PRN Reason: SEVERE Pain (7,8,9,10) Stop: 08/09/20 14:43 Last Admin: 07/26/20 20:47 Dose: 2 tab Documented by: [id number] Polyethylene Glycol (Polyethylene (Miralax) 17 Gm Pack) 17 gm PO DAILY ALIE Stop: 08/27/20 08:39 Last Admin: 07/29/20 08:20 Dose: 17 gm Documented by: [id number] Admin: 07/28/20 09:48 Dose: 17 gm Documented by: [id number] Simethicone (Simethicone 80 Mg Chew) 80 mg PO Q6H PRN PRN Reason: bloating Stop: 08/26/20 12:59 Last Admin: 07/29/20 06:32 Dose: 80 mg Documented by: [id number] Admin: 07/28/20 14:05 Dose: 80 mg Documented by: [id number] Admin: 07/27/20 20:34 Dose: 80 mg Documented by: [id number] Admin: 07/27/20 14:05 Dose: 80 mg Documented by: [id number] Zolpidem Tartrate (Zolpidem Tartrate 5 Mg Tab) 5 mg PO HS PRN PRN Reason: Sleep Stop: 08/27/20 15:11 Last Admin: 07/28/20 20:53 Dose: 5 mg Documented by: [id number] Discontinued Medications Bisacodyl (Bisacodyl 10 Mg Supp) 10 mg MN NOW STA Stop: 07/28/20 08:41 Last Admin: 07/28/20 14:04 Dose: Not Given Documented by: [id number] Bisacodyl (Bisacodyl 10 Mg Supp) 10 mg MN NOW STA Stop: 07/28/20 18:04 Last Admin: 07/28/20 20:47 Dose: Not Given Documented by: [id number] Bupivacaine HCl/Epinephrine Bitart (Bupivacaine/Epinephrine 0.5% Mpf 1:200,000 30 Ml Vial) Confirm Administered Dose 30 ml .ROUTE .STK-MED ONE Stop: 07/26/20 15:47 Last Admin: 07/26/20 17:05 Dose: 20 ml Documented by: [id number] Fentanyl Citrate (Fentanyl Citrate 100 Mcg/2 Ml Vial) 25 mcg IV Q5M PRN PRN Reason: PACU Use Only-Pain Stop: 07/26/20 23:54 Last Admin: 07/26/20 17:53 Dose: 25 mcg Documented by: [id number] Admin: 07/26/20 17:48 Dose: 25 mcg Documented by: [id number] Admin: 07/26/20 17:43 Dose: 25 mcg Documented by: [id number] Admin: 07/26/20 17:38 Dose: 25 mcg Documented by: [id number] Hydromorphone HCl (Hydromorphone Inj 0.5 Mg/0.5 Ml Syr) 0.5 mg IV NOW STA Stop: 07/26/20 12:48 Last Admin: 07/26/20 13:02 Dose: 0.5 mg Documented by: [id number] Hydromorphone HCl (Hydromorphone Inj 1 Mg/Ml Syringe) 0.25 mg IV Q5M PRN PRN Reason: PACU Use Only-Pain Stop: 07/26/20 23:54 Last Admin: 07/26/20 18:15 Dose: 0.25 mg Documented by: [id number] Admin: 07/26/20 18:09 Dose: 0.25 mg Documented by: [id number] Admin: 07/26/20 18:04 Dose: 0.25 mg Documented by: [id number] Admin: 07/26/20 17:59 Dose: 0.25 mg Documented by: [id number] Sodium Chloride (Nss 1000ml) 1,000 mls @ 999 mls/hr IV .Q1H1M ONE Stop: 07/26/20 13:16 Last Infusion: 07/26/20 14:57 Dose: 0 mls/hr Documented by: [id number] Admin: 07/26/20 13:02 Dose: 999 mls/hr Documented by: [id number] Cefoxitin Sodium (Mefoxin) 2,000 mg in 60 mls @ 100 mls/hr IV NOW STA Stop: 07/26/20 13:22 Last Infusion: 07/26/20 13:47 Dose: 0 mls/hr Documented by: [id number] Admin: 07/26/20 13:06 Dose: 100 mls/hr Documented by: [id number] Lactated Ringer's (Lr) 1,000 mls @ 125 mls/hr IV .Q8H ALIE Stop: 08/25/20 14:44 Last Infusion: 07/28/20 07:54 Dose: 0 mls/hr Documented by: [id number] Admin: 07/28/20 05:18 Dose: 125 mls/hr Documented by: [id number] Infusion: 07/28/20 05:18 Dose: 125 mls/hr Documented by: [id number] Admin: 07/27/20 21:23 Dose: 125 mls/hr Documented by: [id number] Infusion: 07/27/20 21:23 Dose: 0 mls/hr Documented by: [id number] Admin: 07/27/20 12:30 Dose: 125 mls/hr Documented by: [id number] Infusion: 07/27/20 12:05 Dose: 0 mls/hr Documented by: [id number] Admin: 07/27/20 04:05 Dose: 125 mls/hr Documented by: [id number] Infusion: 07/27/20 04:05 Dose: 125 mls/hr Documented by: [id number] Admin: 07/26/20 20:25 Dose: Not Given Documented by: [id number] Admin: 07/26/20 20:25 Dose: 125 mls/hr Documented by: [id number] Piperacillin Sod/Tazobactam (Sod 4.5 gm/ Dextrose) 120 mls @ 240 mls/hr IV NOW ONE; Protocol Stop: 07/28/20 09:59 Last Infusion: 07/28/20 10:08 Dose: 0 mls/hr Documented by: [id number] Admin: 07/28/20 09:38 Dose: 240 mls/hr Documented by: [id number] Ketorolac Tromethamine (Ketorolac 30 Mg/Ml Vial) 30 mg IV NOW ONE Stop: 07/26/20 18:25 Last Admin: 07/26/20 18:32 Dose: 30 mg Documented by: [id number] Labetalol HCl (Labetalol Hcl Iv 5 Mg/Ml 20ml) 5 mg IV Q5M PRN PRN Reason: PACU Use-SBP>160 or DBP>100 Stop: 07/26/20 23:54 Last Admin: 07/26/20 18:29 Dose: 5 mg Documented by: [id number] Cosigned by: [id number] Menthol (Cough Drop (Sugar Free) Rhiannon 24 Rhiannon/1 Box) Confirm Administered Dose 24 rhiannon BUCCAL .STK-MED ONE Stop: 07/27/20 04:42 Last Admin: 07/27/20 05:35 Dose: 24 rhiannon Documented by: [id number] Miscellaneous (Surgicel Absorb Hemostat 2in X 14in) 2 ea TOP ONCE ONE Stop: 07/26/20 17:00 Last Admin: 07/26/20 17:05 Dose: 2 ea Documented by: [id number] Morphine Sulfate (Morphine Sulfate 4 Mg/Ml 1 Ml Carp\Vial) 4 mg IV NOW STA Stop: 07/26/20 11:44 Last Admin: 07/26/20 11:56 Dose: 4 mg Documented by: [id number] Ondansetron HCl (Ondansetron Inj 2 Mg/Ml 2 Ml Vial) 4 mg IV NOW STA Stop: 07/26/20 11:44 Last Admin: 07/26/20 11:56 Dose: 4 mg Documented by: [id number] Polyethylene Glycol (Polyethylene (Miralax) 17 Gm Pack) 17 gm PO DAILY STA Stop: 07/28/20 18:05 Last Admin: 07/28/20 18:31 Dose: 17 gm Documented by: [id number] ECG Rate (beats per minute): 106 Rhythm: sinus tachycardia
--- NOTE | 2020-07-29 09:23 | XRay Report ---
XR chest 1V portable CLINICAL HISTORY: chest pain, oxygen requiring COMPARISON STUDY: 07/26/2020 FINDINGS: The heart is borderline enlarged.. Mild interstitial prominence, likely related to technica l factors given the patient's body habitus. There are increased basilar markings, likely atelectatic. [ IMPRESSION: 1. Minimal increased basilar markings statistically atelectatic. No evidence of lobar consolidation ACT 112: Negative or not required by law. Electronically signed by: Juanito Pope M.D. 07/29/2020 9:21 AM
[2020-07-29 09:33] LABS: D Dimer 3960 ug/L FEU (0-500)
[2020-07-29 09:34] LABS: Creatine Kinase MB < 1.0 ng/ml (0.5-3.6); Lipase 32 U/L (73-393); Troponin I < 0.015 ng/ml (0-0.045)
[2020-07-29] MEDS ORDERED: LABETALOL HCL IV 5 MG/ML 20ML IV PRN (09:52)
[2020-07-29] MEDS ORDERED: IOVERSOL 100ml IV ONE (09:55)
--- NOTE | 2020-07-29 09:57 | Electrocardiogram Report ---
Test Reason : Blood Pressure : / mmHG Vent. Rate : 106 BPM Atrial Rate : 106 BPM P-R Int : 134 ms QRS Dur : 090 ms QT Int : 342 ms P-R-T Axes : 057 061 032 degrees QTc Int : 454 ms Sinus tachycardia Otherwise normal ECG When compared with ECG of 26-JUL-2020 11:01, No significant change was found Confirmed by Diallo Bianchi ([id number]) on 07/29/2020 9:57:39 AM Referred By: REFERRED SELF Confirmed By:Thom Bianchi
[2020-07-29] MEDS ORDERED: OPTIRAY 320 125ml IV ONE (10:03)
--- NOTE | 2020-07-29 10:22 | XRay Report ---
XR KUB/Abdomen 1 view CLINICAL HISTORY: Abdominal pain COMPARISON STUDY: No previous studies for comparison. FINDINGS: There are surgical clips in the right upper quadrant consistent with a prior cholecystectom y. There is skin stormy within the right upper quadrant as well as within the midline at the L3 leve l. There is mild gaseous prominence of the transverse colon and upper abdominal small bowel loops. Th ere is a paucity of bowel gas within the pelvis. Extraluminal gas bubbles are suspected projected ove r the liver. This is likely postsurgical. IMPRESSION: 1. Postsurgical changes of a prior cholecystectomy 2. Gas bubbles projected over the liver, likely are postsurgical 3. Mildly dilated upper abdominal small bowel loops. Gas present within the transverse colon. An ileu s is favored over a bowel obstruction. Clinical follow-up is advocated. ACT 112: Negative or not required by law. Electronically signed by: Juanito Pope M.D. 07/29/2020 10:21 AM
--- NOTE | 2020-07-29 10:48 | Ultrasound Report ---
BILATERAL LOWER EXTREMITY VENOUS DOPPLER HISTORY: Acute pain and swelling of the lower legs with elevated d-dimer elevated d dimer COMPARISON STUDY: None. FINDINGS: There is normal compressibility, flow, and augmentation within the bilateral lower extremit y deep venous systems. IMPRESSION: No DVT within the right or left lower extremity. ACT 112: Negative or not required by law. Electronically signed by: Jerome Huggins M.D. 07/29/2020 10:46 AM
--- NOTE | 2020-07-29 10:54 | CT Scan Report ---
CT ANGIOGRAM OF THE CHEST CLINICAL HISTORY: Shortness of breath. Possible pulmonary embolism. COMPARISON STUDY: Chest x-ray dated 07/29/2020 TECHNIQUE: Following the IV administration of 120 mL of Optiray-320, CT angiogram of the thorax was p erformed from the thoracic inlet to the lung bases utilizing the pulmonary embolus protocol. Images a re reviewed in the axial, sagittal, and coronal planes. IV contrast was administered without complica tion. MIP imaging was performed. A dose lowering technique was utilized adhering to the principles o f ALARA. CT DOSE: 848.20 mGy.cm FINDINGS: No pathologically enlarged axillary mediastinal or hilar lymph nodes were visualized. There was no evidence of thoracic aortic dilatation. There were no pulmonary artery filling defects to indicate acute pulmonary embolism. The study is rodriguez ited from a technical standpoint due to patient obesity No pleural effusions are visualized. There are bibasilar atelectatic changes. There is a 2 mm subpleural left lower lobe pulmonary nodule, a finding of doubtful clinical significance IMPRESSION: 1. Technically limited study due to morbid obesity 2. No evidence of acute pulmonary embolism given the technical limitations of the study 3. Minor dependent basilar atelectasis. ACT 112: Negative or not required by law. Electronically signed by: Juanito Pope M.D. 07/29/2020 10:53 AM
[2020-07-29] MEDS ORDERED: bisacodyL 5 MG TABEC PO ONE (14:02)
[2020-07-29] MEDS: HEPARIN SOD 5,000 UNIT/0.5 ML VIAL SQ SCH (21:25)
[2020-07-29] MEDS: ZOLPIDEM TARTRATE 5 MG TAB PO PRN (22:41)
[2020-07-29] MEDS ORDERED: Nursing to Pharmacy Communication SCH (22:45)
[2020-07-30] MEDS: PIPERACILLIN/TAZOBACTAM 4.5 GM in DEXTROSE 5% 100 ML IV SCH ×4 (00:39→23:13)
[2020-07-30] MEDS: HEPARIN SOD 5,000 UNIT/0.5 ML VIAL SQ SCH ×3 (05:43→20:22)
[2020-07-30] MEDS: LACTATED RINGER'S 1,000 ML IV SCH (05:43)
[2020-07-30 06:18] LABS: Basophils # (auto) 0.05 K/uL (0-0.2); Basophils % (auto) 0.4 %; Eosinophils # (auto) 0.41 K/uL (0-0.5); Eosinophils % (auto) 3.3 %; Hematocrit (blood only) 31.3 % (37-47); Hemoglobin 9.8 g/dL (12.0-16.0); Immature Granulocytes # (auto) 0.21 K/uL (0.00-0.02); Immature Granulocytes % (auto) 1.7 %; Lymphocytes # (auto) 1.87 K/uL (1.2-3.4); Lymphocytes % (auto) 14.8 %; Mean Corpuscular Hemoglobin 24.6 pg (25-34); Mean Corpuscular Hgb Conc 31.3 g/dL (32-36); Mean Corpuscular Volume 78.6 fL (80-100); Mean Platelet Volume 11.6 fL (7.4-10.4); Monocytes # (auto) 1.17 K/uL (0.11-0.59); Monocytes % (auto) 9.3 %; Neutrophils % (auto) 70.5 %; Platelet Count 258 K/uL (130-400); RDW Coefficient of Variation 17.5 % (11.5-14.5); Red Blood Count 3.98 M/uL (4.2-5.4); White Blood Count 12.61 K/uL (4.8-10.8)
[2020-07-30 06:54] LABS: Albumin Level 2.1 gm/dl (3.4-5.0); BUN Creatinine Ratio 27.6 (10-20); Calcium 8.6 mg/dl (8.5-10.1); Creatinine Clr Calc Pharmacy 210.8 ml/min; Est GFR (African American) 135.4; Est GFR (Non-African American) 116.8; Potassium 3.3 mmol/L (3.5-5.1)
[2020-07-30 06:58] LABS: Albumin Globulin Ratio 0.5 (0.9-2); Bilirubin,Total 0.7 mg/dl (0.2-1); Ferritin 160.5 ng/ml (8-388); Globulin 3.9 gm/dl (2.5-4.0)
[2020-07-30] MEDS: POLYETHYLENE (MIRALAX) 17 GM PACK PO SCH ×2 (07:49→07:53)
--- NOTE | 2020-07-30 08:58 | Hospitalist Progress Note ---
Date of Service July 30, 2020 Assessment & Plan (1) Postoperative ileus: This is a 44-year-old female who has significant past medical history of morbid obesity and nephrolithiasis who is POD #4 laparoscopic cholecystectomy with post operative chest pain and ileus. Patient is severely obese and has not followed with primary care provider in several years. Likely undiagnosed chronic medical problems at baseline Developed chest pain yesterday on POD 3, found to have ileus and atelectasis. Work up - CT PE and venous duplex negative for clot, ECG unchanged, lipase, Trop WNL Tolerated clears without issue - advance diet as tolerated, IVF @ 100ml/hr, encourage ambulation and incentive spirometry Encouraged mobility to help promote bowel habits. Repeat KUB with interval improvement in small and large bowel gaseous distention since KUB of July 29, 2020. This favors an improving ileus (2) Hypoxia: Given body habitus likely undiagnosed YANE given O2 requirement at bedtime nocturnal oximetry drops to 58% on room air - qualifies for discharge on oxygen but unclear requirement Will repeat pulse ox tonight on 2L O2 with instructions to respiratory and nursing for uptitration of O2 to maintain O2 sat of 90% (3) HTN (hypertension): Undiagnosed vs exacerbated by pain. PRN Labetalol as needed, optimize pain control, close PCP follow up (4) Morbid obesity: Encourage diet and lifestyle modifications BMI 67.1 (5) Anemia: H&H 9.8 and 31.3 (Preop H&H 11.7 and 36.6) Microcytic hypochromic Iron studies consistent with SAVANAH vs anemia of chronic disease, complicated by ongoing vaginal bleeding May be in setting of vaginal bleeding Follow up with RE EXAMINER (6) Uterine mass: 17 cm large uterine fundal mass noted incidentally on CT scan on admission Follow-up with RE EXAMINER as outpatient per their consultation (7) S/P laparoscopic cholecystectomy: POD #4 laparoscopic cholecystectomy Initially tolerated procedure well Advanced diet to clears, per surgery. Can advance to diet Pain/wound management per surgery Continue to monitor H&H & encourage incentive spirometry Leukocytosis trending down -continue IV Zosyn today and discharge on cipro/flagyl per surgery Patient was seen and examined in collaboration with Dr. Garcia, please see addendum Thank you for this consultation. We will follow the patient with you during their hospital stay. You can reach a member of the [facility] Hospitalist Team 23/01 via pager @ [phone]. Admission and Anticipated Discharge Date Admission Date: July 28, 2020 Supervising Physician Co-Signing Physician Notes Attending addendum The patient was seen and examined in medical floor She is morbidly obese and complaining of abdominal pain during examination She moved her bowels today and did not want to take any more narcotics She is minimally short of breath but denies to have any shortness of breath On examination Morbidly obese lying in bed with mild shortness of breath at rest Hemodynamically stable with systolic blood pressure slightly above normal at 147/90 Chest-decreased breath sounds likely secondary to thick chest wall, no crackles Abdomen-distended, soft, mildly tender and bowel sounds present Extremities-1+ edema bilaterally Prior labs and imaging studies reviewed She is a status post laparoscopic cholecystectomy-signed out by surgical team She will have a repeat nocturnal pulse oximeter today to determine the requirements of oxygen before going home tomorrow Agree with assessment and plan as outlined above by YASMIN Paulson Dr Subjective Seen and examined in 286-2. Feeling better today after 2 bowel movements this morning. Abdominal pain has resolved. Feels fatigued but otherwise denies fever, chills, lightheadedness, headache, chest pain, SOB, nausea, vomiting, dysuria or diarrhea. Review of Systems Review of Systems: At least ten systems reviewed and negative except as noted in the HPI. Physical Exam Physical Exam: Constitutional: Morbidly obese, 91% RA, sitting in bedside chair, answers questions appropriately Head: Normocephalic, Atraumatic Eyes: PERRL, conjunctivae normal, anicteric sclerae ENMT: external ear and nose normal, oropharynx normal Neck: trachea midline, no thyromegaly normal visual inspection Respiratory: normal respiratory effort, lungs clear to auscultation, no wheeze, rales, rhonchi. Normal insp/exp effort, no accessory muscle use Cardiovascular: RRR, no murmur, obese lower ext, no overt edema Vessels: no JVD or carotid bruit Chest: normal inspection of chest, no pain to palpation of chest wall Abdomen: normoactive bowel sounds, incisions/dressings CDI x 4, soft, mild TTP Musculoskeletal: no cyanosis or clubbing, extremities AROM x 4 Skin: no rashes, warm and dry normal turgor Neurologic: PERRL, EOMI, accommodation nl, no face palsy, no dysarthria CN's II-XI intact bilaterally and moves all extremities Psychiatric: A+Ox3, euthymic affect : deferred Results & Data Results & Data ([facility]) Vital Signs (Past 12 Hours) Vital Signs Temp Pulse Pulse Resp BP BP Pulse Ox 07/30/20 07:16 37.1 C 58 L 18 147/90 H 91 07/30/20 03:12 105 H 07/30/20 00:45 103 H 07/29/20 23:27 102 H 07/29/20 23:11 37 C 108 H 18 158/95 H 95 07/29/20 21:56 111 H Pulse Ox 07/30/20 07:16 07/30/20 03:12 91 07/30/20 00:45 93 07/29/20 23:27 89 L 07/29/20 23:11 07/29/20 21:56 94 Laboratory Results Short CBC 07/30/20 Range/Units 05:40 WBC 12.61 H (4.8-10.8) K/uL Hgb 9.8 L (12.0-16.0) g/dL Hct 31.3 L (37-47) % Plt Count 258 (130-400) K/uL BMP 07/30/20 05:40 Sodium 136 Potassium 3.3 L Chloride 101 Carbon Dioxide 30 BUN 13 Creatinine 0.49 L Glucose 83 Calcium 8.6 Cardiac Enzymes 07/29/20 07/29/20 07/29/20 Range/Units 05:53 11:07 16:01 CK-MB (CK-2) < 1.0 (0.5-3.6) ng/ml Troponin I < 0.015 < 0.015 < 0.015 (0-0.045) ng/ml Liver Function 07/30/20 Range/Units 05:40 Total Bilirubin 0.7 (0.2-1) mg/dl AST 18 (15-37) U/L ALT 25 (12-78) U/L Alkaline Phosphatase 100 (45-117) U/L Albumin 2.1 L (3.4-5.0) gm/dl Diagnostic Findings KUB: 1. Interval improvement in small and large bowel gaseous distention since KUB of July 29, 2020. This favors an improving ileus. 2. Round density projecting of the lower abdomen and pelvis which is due to the indeterminate pelvic mass shown on CT of July 26, 2020. Please see that report for further description.
--- NOTE | 2020-07-30 09:22 | Surgery Progress Note ---
Date of Service pt is doing pass large BM, no abdominal pain, no nausea, no vomiting, KUB- air in colon, July 30, 2020 Assessment & Plan (1) Acute cholecystitis: POD # 3 s/p lap hernán - afebrile, leukocytosis improved to 13K (17K previously) - Tachycardic, HR in 110's - previously thought to be secondary to pain but had episode of chest pain this am at 630 - Hypertensive Systolic 183 today (140's previously) - t. bili wnl (1.1 yesterday) LFTS and alk phos wnl - moderate postop/gas pain, slightly improved last evening - chest pain this morning, EKG with sinus tachycardia No bilateral lower extremity calf pain Plan: Patient needs to ambulate to calender let off helper in dissolution of gas pain and bloating s/p laparoscopic surgery. She is now lying in bed. Walked with PT yesterday with walker. Patient refusing narcotic pain medication as it causes constipation and has not had bowel movement yet Continue Miralax daily Could not do suppository last night due to pain Continue IV Zosyn for now Work-up for chest pain and medicine consulted. Concern for possible PE given morbid obesity, little ambulation Incentive spirometry ordered but is not in room. Told nurse this needs to be given to patient. Likely has atelectasis postop as well. 07/30/2020 9:20am POD 4. S/P lap hernán doing fine, no abdominal pain, pt wants to go home today, the post-op care instruction was given, F/U DR. Sweet 2 weeks, (2) Uterine mass: 17 cm uterine mass on CT scan Looked to be possible Fibroid intraoperatively OBGYN consulted plan for outpatient follow-up with OBGYN Menstrual bleeding has been persistent, easing up per patient (3) Chest pain: EKG with sinus tachycardia Concern for ACS/ possible PE given morbid obesity and little ambulation in postop setting Medicine consulted, await work up (4) HTN (hypertension): (5) Sinus tachycardia: (6) Morbid obesity: Discussed with Dr. Nuno who agrees with above. Admission and Anticipated Discharge Date Admission Date: July 28, 2020 Supervising Physician Co-Signing Physician Notes The patient was seen and examined in medical telemetry unit She is morbidly obese and is a status post laparoscopic cholecystectomy on 07/26/20 She was noted to be in chest pain ,hypertensive and tachycardic this morning and hospitalist was consulted Has been feeling a little bit better during examination Has not moved her bowel for the last 4 or 5 days On examination Sitting on a chair without any acute distress Blood pressure noted to be high at 183/97 and pulse 113 which has been improving Chest-decreased breath sound both sides likely secondary to thick chest wall Heart-S1-S2 regular Abdomen-distended, soft, tender right upper quadrant, bowel sounds diminished [id number]+ edema bilaterally [employer]-alert, awake and oriented x3 Her labs, EKG and imaging studies reviewed Did not have any pulmonary embolism and does not have any EKG changes or increasing troponin Noted to be ileus likely secondary to surgery and use of narcotic pain m edications Agree with assessment and plan as outlined above by YASMIN Kirkpatrick Dr Subjective Seen and examined in 286-2. Review of Systems Constitutional: + anorexia; no fever, no chills and no fatigue Cardiovascular: + chest pain and + chest pain at rest; no chest pain with activity Gastrointestinal: + abdominal pain and + nausea; no vomiting, no coffee ground emesis and no change in bowel habits Musculoskeletal: + back pain Physical Exam Constitutional: WD/WN, vitals as above well developed and well nourished Eyes: PERRL, conjunctivae normal, anicteric sclerae ENMT: external ear and nose normal, oropharynx normal Neck: trachea midline, no thyromegaly Respiratory: normal respiratory effort, lungs clear to auscultation normal respiratory effort Cardiovascular: RRR, no murmur, no edema Gastrointestinal (Abdomen): normal bowel sounds, soft, nontender, no hepatosplenomegaly all incisions intact, no redness,no discharge, NT, ND, BS + Musculoskeletal: no cyanosis or clubbing, extremities motor strength 5/5 Skin: no rashes, warm and dry Neurologic: awake Psychiatric: Orientation: alert and oriented x 3 Results & Data ([facility]) Vital Signs (Past 12 Hours) Vital Signs Temp Pulse Pulse Resp BP BP Pulse Ox 07/30/20 07:16 37.1 C 58 L 18 147/90 H 91 07/30/20 03:12 105 H 07/30/20 00:45 103 H 07/29/20 23:27 102 H 07/29/20 23:11 37 C 108 H 18 158/95 H 95 07/29/20 21:56 111 H Pulse Ox 07/30/20 07:16 07/30/20 03:12 91 07/30/20 00:45 93 07/29/20 23:27 89 L 07/29/20 23:11 07/29/20 21:56 94 Laboratory Results Abnormal lab results 07/29/20 07/29/20 07/30/20 Range/Units 05:53 05:54 05:40 WBC (4.8-10.8) K/uL RBC (4.2-5.4) M/uL Hgb (12.0-16.0) g/dL Hct (37-47) % MCV (80-100) fL MCH (25-34) pg MCHC (32-36) g/dL RDW Std Deviation (36.4-46.3) fL RDW Coeff of Diego (11.5-14.5) % MPV (7.4-10.4) fL Neut # (Auto) (1.4-6.5) K/uL [place] # (Auto) (0.11-0.59) K/uL Immature Gran # (Auto) (0.00-0.02) K/uL D-Dimer 3960 H* (0-500) ug/L FEU Potassium 3.3 L (3.5-5.1) mmol/L Creatinine 0.49 L (0.6-1.2) mg/dl BUN/Creatinine Ratio 27.6 H (10-20) Iron 32 L (35-150) mcg/dl TIBC 196 L (250-450) mcg/dl Transferrin 155 L (200-360) mg/dl Total Protein 6.0 L (6.4-8.2) gm/dl Albumin 2.1 L (3.4-5.0) gm/dl Albumin/Globulin Ratio 0.5 L (0.9-2) Lipase 32 L (73-393) U/L 07/30/20 Range/Units 05:40 WBC 12.61 H (4.8-10.8) K/uL RBC 3.98 L (4.2-5.4) M/uL Hgb 9.8 L (12.0-16.0) g/dL Hct 31.3 L (37-47) % MCV 78.6 L (80-100) fL MCH 24.6 L (25-34) pg MCHC 31.3 L (32-36) g/dL RDW Std Deviation 50.0 H (36.4-46.3) fL RDW Coeff of Diego 17.5 H (11.5-14.5) % MPV 11.6 H (7.4-10.4) fL Neut # (Auto) 8.90 H (1.4-6.5) K/uL [place] # (Auto) 1.17 H (0.11-0.59) K/uL Immature Gran # (Auto) 0.21 H (0.00-0.02) K/uL D-Dimer (0-500) ug/L FEU Potassium (3.5-5.1) mmol/L Creatinine (0.6-1.2) mg/dl BUN/Creatinine Ratio (10-20) Iron (35-150) mcg/dl TIBC (250-450) mcg/dl Transferrin (200-360) mg/dl Total Protein (6.4-8.2) gm/dl Albumin (3.4-5.0) gm/dl Albumin/Globulin Ratio (0.9-2) Lipase (73-393) U/L
--- NOTE | 2020-07-30 09:36 | Discharge Summary (DS) ---
ADMITTING DIAGNOSIS: Acute cholecystitis. DISCHARGE DIAGNOSIS: Acute cholecystitis. OPERATION: Laparoscopic cholecystectomy. SURGEON: Tray Sweet MD. DETAILS OF DISCHARGE SUMMARY: This is a 44-year-old female who was admitted to hospital for acute cholecystitis and the patient went to the OR. The patient had a laparoscopic cholecystectomy by Dr. Tray Sweet. The patient tolerated the procedure well. After procedure, the patient is doing fine. Patient has some constipation after giving the patient a stool softener, the patient passed stool today. The patient has no abdominal pain, no fever. The patient required to go home today. PHYSICAL EXAMINATION: VITAL SIGNS: Temperature is 37.1, heart rate of 58, respiratory rate 18, blood pressure 147/90, O2 saturation 91% on room air. GENERAL: The patient is alert, awake, oriented x3. HEENT: With normal limitation. NEUROLOGIC: Intact. NECK: No JVD. CHEST: Bilateral lungs sound clear. HEART: Normal S1, S2. No murmur. ABDOMEN: Soft and no tenderness. All dressing intact. All incision intact and no redness, no drainage. Bowel sounds positive. No distention. EXTREMITIES: No edema. The patient passed stool and tolerated the diet. The patient had a KUB today shows some air in colon and no significant findings. PLAN: The patient wanted to go home today. We gave the patient postop care instruction, and the patient understands. The patient will follow up with Dr. Sweet in 2 weeks.
--- NOTE | 2020-07-30 09:55 | XRay Report ---
KUB CLINICAL HISTORY: Ileus. COMPARISON STUDY: CT of the abdomen and pelvis July 26, 2020. KUB July 29, 2020. FINDINGS: Surgical skin stormy and cholecystectomy clips are again noted. A large round density proj ecting over the lower abdomen and pelvis is due to the indeterminate pelvic mass shown on CT of Jan2020. Mild gaseous distention of small large bowel has improved since KUB of July 29, 2010. Locules of gas projecting over the liver remain unchanged. These may be intraluminal or related to r ecent surgery. IMPRESSION: 1. Interval improvement in small and large bowel gaseous distention since KUB of July 29, 2020. Th is favors an improving ileus. 2. Round density projecting of the lower abdomen and pelvis which is due to the indeterminate pelvic mass shown on CT of July 26, 2020. Please see that report for further description. ACT 112: Negative or not required by law. Electronically signed by: Ramesh Alcala M.D. 07/30/2020 9:53 AM
[2020-07-30] MEDS: POTASSIUM CHLORIDE / WTR 10 MEQ/100 ML PLCT IV SCH ×2 (10:03→11:51)
[2020-07-30] MEDS: ACETAMINOPHEN 325 MG TAB PO PRN ×2 (10:13→20:21)
[2020-07-30] MEDS ORDERED: POTASSIUM CHLORIDE CRTAB 20 MEQ TABCR PO STA (14:37)
[2020-07-30] MEDS: ACETAMINOPHEN 500 MG TAB PO PRN (18:26)
[2020-07-30] MEDS: ZOLPIDEM TARTRATE 5 MG TAB PO PRN (20:22)
[2020-07-31] MEDS: HEPARIN SOD 5,000 UNIT/0.5 ML VIAL SQ SCH ×2 (05:59→15:56)
[2020-07-31] MEDS: ACETAMINOPHEN 500 MG TAB PO PRN (06:38)
[2020-07-31 07:16] LABS: Hematocrit (blood only) 31.1 % (37-47); Hemoglobin 9.7 g/dL (12.0-16.0); Mean Corpuscular Hemoglobin 24.4 pg (25-34); Mean Corpuscular Hgb Conc 31.2 g/dL (32-36); Mean Corpuscular Volume 78.3 fL (80-100); Mean Platelet Volume 11.3 fL (7.4-10.4); Nucleated RBC # (auto) 0.03 K/uL (0-0); Nucleated RBC % (auto) 0.2 %; Platelet Count 274 K/uL (130-400); RDW Coefficient of Variation 17.7 % (11.5-14.5); RDW Standard Deviation 50.4 fL (36.4-46.3); Red Blood Count 3.97 M/uL (4.2-5.4); White Blood Count 13.09 K/uL (4.8-10.8)
[2020-07-31 07:55] LABS: BUN Creatinine Ratio 25.9 (10-20); Calcium 8.7 mg/dl (8.5-10.1); Creatinine Clr Calc Pharmacy 234.8 ml/min; Est GFR (African American) 140.3; Est GFR (Non-African American) 121.1; Magnesium 1.9 mg/dl (1.8-2.4); Potassium 3.6 mmol/L (3.5-5.1)
[2020-07-31 07:56] LABS: Phosphorus 3.8 mg/dl (2.5-4.9)
[2020-07-31] MEDS: POLYETHYLENE (MIRALAX) 17 GM PACK PO SCH (09:00)
--- NOTE | 2020-07-31 09:12 | Discharge Summary ---
Date of Service July 31, 2020 Admission HPI Per Admitting Provider This is a 44-year-old female who presents right sided abdominal pain since this morning. The patient reports a prior history of kidney stones, and has had blood in her urine with ongoing intermittent discomfort of the abdomen and back. The patient has had some nausea. She denies diaphoresis. She has no abdominal surgical history. Patient also denies any cardiopulmonary history or strong family history of the same. Admission Exam Per Admitting Provider Constitutional: well developed, well nourished and + obese Neck: trachea midline Respiratory: normal respiratory effort, lungs clear to auscultation Auscultation: + diminished lung sounds Cardiovascular: RRR, no murmur, no edema Gastrointestinal (Abdomen): Inspection/Auscultation: abdomen normal to inspection and normal bowel sounds; abdomen not distended Percussion/Palpation: + abdomen tender and abdomen soft; no guarding and abdomen not rigid Principal Diagnosis Acute cholecystitis s/p laparoscopic cholecystectomy Discharge Exam Constitutional: Morbidly obese, 97% RA, sitting in bedside chair, answers questions appropriately Head: Normocephalic, Atraumatic Eyes: PERRL, conjunctivae normal, anicteric sclerae ENMT: external ear and nose normal, oropharynx normal Neck: trachea midline, no thyromegaly normal visual inspection Respiratory: normal respiratory effort, lungs clear to auscultation, no wheeze, rales, rhonchi. Normal insp/exp effort, no accessory muscle use Cardiovascular: RRR, no murmur, obese lower ext, no overt edema Vessels: no JVD or carotid bruit Chest: normal inspection of chest, no pain to palpation of chest wall Abdomen: normoactive bowel sounds, incisions/dressings CDI x 4, soft nontender Musculoskeletal: no cyanosis or clubbing, extremities AROM x 4 Skin: no rashes, warm and dry normal turgor Neurologic: PERRL, EOMI, accommodation nl, no face palsy, no dysarthria CN's II-XI intact bilaterally and moves all extremities Psychiatric: A+Ox3, euthymic affect : deferred Discharge Data Allergies Allergy/AdvReac Type Severity Reaction Status Date / Time No Known Allergies Allergy Unverified 07/26/20 13:22 Consultations 07/26/20 12:47 ED Decision to Admit Stat 07/26/20 17:14 Consult Gynecology Routine 07/28/20 15:12 Consult Case Management - Discharge Planning Routine 07/29/20 08:09 Consult Hospitalist Routine Procedures Performed Operation Date: 07/26/20 15:00 Actual Procedures p Laparoscopic Cholecystectomy - Tray Sweet MD Ordered Studies 07/26/20 11:45 CT abd pelvis wo con Stat 07/29/20 09:14 CT angio chest PE protocol Stat 07/29/20 09:39 US venous doppler LE BI Stat Hospital Course (1) Postoperative ileus: This is a 44-year-old female who has significant past medical history of morbid obesity and nephrolithiasis who is POD #4 laparoscopic cholecystectomy with post operative chest pain and ileus. Patient is severely obese and has not followed with primary care provider in several years. Likely undiagnosed chronic medical problems at baseline Developed chest pain yesterday on POD 3, found to have ileus and atelectasis. Work up - CT PE and venous duplex negative for clot, ECG unchanged, lipase, Trop WNL Ileus has resolved. Was having bowel movements yesterday and today and has been advanced back to regular diet without issue (2) Hypoxia: Given body habitus likely undiagnosed YANE given O2 requirement at bedtime - nocturnal oximetry with documented hypoxic events - qualifies for discharge on 3L humidified NC O2 HS Will need formal sleep study upon discharge (3) HTN (hypertension): Undiagnosed vs exacerbated by pain. Improved with pain control. Close PCP follow up. (4) Morbid obesity: Encourage diet and lifestyle modifications - BMI 67.1 (5) Anemia: H&H 9.8 and 31.3 (Preop H&H 11.7 and 36.6) Microcytic hypochromic Iron studies consistent with SAVANAH vs anemia of chronic disease, complicated by ongoing vaginal bleeding May be in setting of vaginal bleeding Follow up with [facility] (6) Uterine mass: 17 cm large uterine fundal mass noted incidentally on CT scan on admission Follow-up with [facility] as outpatient per their consultation (7) S/P laparoscopic cholecystectomy: S/p laparoscopic cholecystectomy, POD#5 Tolerated procedure well, complicated by post op ileus that has since resolved Follow up with general surgery and instructions detailed in discharge Complete PO course of cipro/flagyl per surgery Patient was seen and examined in collaboration with Dr. Holguin, please see addendum. Please take good care of yourself. Call if you have any questions or problems. You can reach a [facility] hospitalist on duty at [facility] 24 hours a day by calling [phone]. [facility] Total Time Total Time Spent Total Time Spent (In Minutes): 60 Discharge Plan Discharge Items Patient Disposition: Home - Self-Care Reason For Visit: CHOLECYSTITIS Discharge Diagnosis: Acute Cholecystitis Uterine mass Condition on Discharge: Good Activity: Per Instructions section Lifting Comment: for 4 weeks Sexual Activity: After two weeks Exercise/Sports: Rest today Driving/Machine Use: no driving while taking pain medicine Non-emergency contact: Primary Care Provider and Surgeon Call non-emergency contact if: your pain is not controlled, your pain is worsening, your pain is concerning for you, you have a fever, your temperature is above 101, your wound has increased redness, your wound has increased drainage and your wound pain has increased Follow-up/Referrals: Zeinab Parker MD [Outside Practitioners] - 08/03/20 1:00 pm (Date & Time 08/03/2020 1:00 PM Provider Zeinab Welch MD Department follow up Micki Cueva in 2 weeks, Internal Medicine [facility] Agree-I have documented within the medical record.) Diet: Heart Healthy Addtl Attending Provider Instructions: General Surgery Discharge Instructions: -No heavy lifting over 20 pounds for 4 weeks - No strenuous activity for 4 weeks - No submerging incisions underwater for 2 weeks (no swimming, bathing, hot tubs) - No driving while taking narcotic pain or until you are pain free - You may shower. Allow soap and water to run over incisions and pat dry. Remove outer dressings prior to showering. - Surgical stormy will be removed in office - You may take extra strength Tylenol and Ibuprofen as needed for mild pain -650 mg of Tylenol every 6 hours as needed - 600 mg of Ibuprofen every 6 hours as needed (take with food) - May take narcotic pain medication for severe pain , take as directed - Recommend taking daily stool softener (Colace) while taking narcotic pain medication to prevent constipation/straining - Follow-up in surgical office in 2 weeks. Call office at [phone] to make an appointment for postop visit and staple removal. You will need to follow-up with OBGYN for the uterine mass. Dr. Duarte from [facility] saw you in consultation while in hospital. Additional instructions from hospital medicine: -Prescriptions for oral antibiotics (Cipro, Flagyl) have been sent to [facility]. Please complete course. -You are being discharged home on 3L nasal cannula oxygen to use every night/when sleeping. You will need an out-patient sleep study for further evaluation of sleep apnea. -You have been set up with hospital follow up appointment with Dr. Cast at 1:00pm at Internal Medicine [facility] Pending Studies at Discharge: No Studies:: Needs out patient sleep study. Stand-Alone Forms: My [employer], Smoking Cessation Medications and DC Order Prescriptions: New oxycodone-acetaminophen [Percocet] 5-325 mg tablet 1 tab PO Q6H PRN (Reason: pain) Qty: 14 RF: 0 ciprofloxacin HCl [Cipro] 500 mg tablet 500 mg PO BID Qty: 10 RF: 0 metronidazole [Flagyl] 500 mg tablet 500 mg PO BID 7 Days Qty: 14 RF: 0 Continued ibuprofen 200 mg Tablet 0 mg PO UD PRN (Reason: Pain) RF: 0 Discharge Orders: Discharge Order (Routine); Ordered 07/31/20 Ordered By: Pastora Dinero/Other Patient Handouts: Having Laparoscopic Cholecystectomy Admission Data Admit Date/Time: 07/28/20 09:27 Attending Provider: Yayo Holguin Admit Provider: Tray Sweet Primary Care Provider: PCP,NO Other Providers: Tray Sweet ; Zeeshan Martell ; Mag Escobar ; Alyson Pina ; Sharath Duarte ; Cindy Gore ; Curtis Solomon ; Nate Delgado ; Zeinab Heath ; Ginna Menezes V. ; Luna Ocampo ; Vicki Hernandez ; Velma Patton ; Rosalina Miller ; Heidi Kline ; Aaron Nova ; Sriinvasa Dozier ; Toño Garcia ; Shena Cárdenas ; Kamila Osborne ; Lise Ji ; Pastora Rashid ; Jordin Virk ; Krish Villatoro ; Reji Dunbar ; Essence Garner ; Ginna Carpenter ; Yayo Holguin ; Patrice Reyes ; Liliana Carrasco ; Nanette Rascon ; Patrice Farmer ; Bonny Nowak ; Arabella Mathew ; Meliton Ludwig ; Lorena Wilson I. ; Jeremias Solis ; Chandana Nuno Other Interventions: Discharge Summary Assessment (RN) Last Done: 07/31/20 13:12 Supervising Physician Co-Signing Physician Notes Patient is seen and examined at bedside. Denies any nausea, vomiting, abdominal pain, chest pain, shortness of breath, dizziness. Patient qualifies for nocturnal oxygen. On exam patient is morbidly obese, no apparent distress, normocephalic atraumatic, lungs are clear to auscultation, S1-S2, no murmur, abdomen soft, nontender, normal bowel sounds, B/L LE lymphedema. Postoperative ileus resolved. Tolerating regular diet. Qualifies for supplemental oxygen at bedtime. Advised to get sleep study as outpatient. Advised to follow-up with [facility] as outpatient for uterine mass evaluation and management. Also advised to follow-up with primary care physician, surgery upon discharge. I personally reviewed the record. Patient is interviewed and examined at bedside. Patient's care is coordinated with Patsora Rashid PA-C. Please refer to the documentation above for details of patient's presentation and for discussion of other issues.
[2020-07-31] MEDS: PIPERACILLIN/TAZOBACTAM 4.5 GM in DEXTROSE 5% 100 ML IV SCH (09:13)
[2020-07-31] MEDS: oxyCODONE/ACETAMINOPHEN 5mg/325mg TAB PO PRN (11:37)
== END 2020-07-31 17:11 | disposition home or self-care (01) ==
LOC: ED 10:55 → ASU 15:21 → 2N 15:21 → SUATTDRO 07-28 09:27 → 3N 07-30 11:13